=== PATIENT | male | born 1960 | race Caucasian/White ===

== ENCOUNTER 2019-03-22 15:38 | Inpatient (IN) | payer MEDICARE ==
[~2019-03-22] VITALS: Ht 182.9 cm; Wt 115.2 kg
[2019-03-22] MEDS ORDERED: BAYER CHEWABLE81 MG PO (15:56)
[2019-03-22] MEDS ORDERED: PLAVIX75 MG PO (15:56)
[2019-03-22] MEDS ORDERED: GABAPENTIN100 MG PO (15:57)
[2019-03-22] MEDS ORDERED: LANTUS INSULIN10 ML SC (15:59)
[2019-03-22] MEDS ORDERED: METOLAZONE5 MG PO (16:00)
[2019-03-22] MEDS ORDERED: LASIX40 MG PO (16:00)
[2019-03-22] MEDS ORDERED: PERCOCET 10-321 EAC1 PO (16:01)
[2019-03-22] MEDS ORDERED: SULFAMETHOXAZOL1 TA3 PO (16:02)
[2019-03-22 18:50] LABS: BASOPHILS 0.1 % (0-2); EOSINOPHILS 0.1 % (0-7); HEMATOCRIT 23.2 % (42.0-54.0); IMMATURE GRANULOCYTES 0.5 % (0-5); LYMPHOCYTES 5.8 % (15-50); MCH 26.6 pg (26.0-34.0); MCHC 31.9 g/dL (31.0-37.0); MCV 83.5 fL (80.0-100.0); MEAN PLATELET VOLUME 9.8 fL (7.4-10.4); MONOCYTES 3.9 % (2-11); NEUTROPHILS 89.6 % (40-80); PLATELET COUNT 259 10x3/uL (130-400); RBC 2.78 10x6/uL (4.20-6.10); WBC 16.6 10x3/uL (4.8-10.8)
[2019-03-22 18:53] LABS: HEMOGLOBIN 7.4 g/dL (13.5-17.5)
[2019-03-22 19:36] LABS: % SATURATION 36 % (15-55); IRON 59 ug/dl (35-150); TOTAL IRON BIND CAPACITY 160 ug/dl (260-445); UNSAT IRON BIND CAPACITY 101 ug/dl (150-375)
[2019-03-22 19:38] LABS: ALBUMIN 1.9 g/dL (3.4-5.0); ALKALINE PHOSPHATASE 159 U/L (46-116); ALT (SGPT) 153 U/L (10-68); BILIRUBIN - TOTAL 0.52 mg/dL (0.2-1.3); CHLORIDE - SERUM 92 mmol/L (98-107); CREATININE - SERUM 4.8 mg/dL (0.6-1.3); POTASSIUM - SERUM 4.7 mmol/L (3.5-5.1); PROTEIN - SERUM 7.3 g/dL (6.4-8.2); SODIUM 128 mmol/L (136-145); UREA NITROGEN 76 mg/dL (7-18); eGFR NON AFRICAN AMERICAN 13 mL/min (90-120)
[2019-03-22 19:39] LABS: CALC OSMOLALITY 298 mosm/kg (275-300); FERRITIN 3197 ng/mL (3-244)
[2019-03-22 19:43] LABS: GLUCOSE 435 mg/dL (74-106); KETONE - SERUM NEGATIVE (NEGATIVE)
[2019-03-22 20:00] VITALS: BP 125/51
[2019-03-22 20:19] VITALS: BP 122/50
[2019-03-23] VITALS: BP 93/46
[2019-03-23 04:00] VITALS: BP 114/46
[2019-03-23 07:44] VITALS: BP 109/47
[2019-03-23 10:44] LABS: ALBUMIN 1.8 g/dL (3.4-5.0); BILIRUBIN - TOTAL 0.48 mg/dL (0.2-1.3); CALCIUM 8.2 mg/dL (8.5-10.1); CARBON DIOXIDE 23.6 mmol/L (21.0-32.0); CREATININE - SERUM 4.5 mg/dL (0.6-1.3); POTASSIUM - SERUM 3.6 mmol/L (3.5-5.1); PROTEIN - SERUM 6.6 g/dL (6.4-8.2)
[2019-03-23 11:05] LABS: BASOPHILS 0.1 % (0-2); EOSINOPHILS 0.2 % (0-7); HEMATOCRIT 26.4 % (42.0-54.0); HEMOGLOBIN 8.7 g/dL (13.5-17.5); IMMATURE GRANULOCYTES 0.6 % (0-5); LYMPHOCYTES 7.8 % (15-50); MCH 27.1 pg (26.0-34.0); MCV 82.2 fL (80.0-100.0); MEAN PLATELET VOLUME 9.3 fL (7.4-10.4); MONOCYTES 6.8 % (2-11); NEUTROPHILS 84.5 % (40-80); PLATELET COUNT 220 10x3/uL (130-400); RBC 3.21 10x6/uL (4.20-6.10); WBC 12.9 10x3/uL (4.8-10.8)
[2019-03-23 11:49] VITALS: BP 112/49
[2019-03-23 13:56] VITALS: Ht 182.9 cm; Wt 115.2 kg
[2019-03-23 14:57] VITALS: BP 118/48
[2019-03-23 19:30] LABS: APPEARANCE CLEAR (CLEAR); COLOR YELLOW (YELLOW)
[2019-03-23 19:32] LABS: BILIRUBIN NEGATIVE (NEGATIVE); GLUCOSE NEGATIVE (NEGATIVE); KETONE NEGATIVE (NEGATIVE); NITRITE NEGATIVE (NEGATIVE); PROTEIN TRACE mg/dL (NEGATIVE); SPECIFIC GRAVITY 1.025 (1.005-1.020); UROBILINOGEN NORMAL (NORMAL)
[2019-03-23 19:33] LABS: BACTERIA FEW /hpf (NONE SEEN); RED CELLS - URINE 0-5 /hpf (0-5); WHITE CELLS - URINE 0-5 /hpf (0-5)
[2019-03-23 20:31] VITALS: BP 131/59
[2019-03-24] VITALS (7 sets, daily range): BP systolic 104–143; BP diastolic 46–68
[2019-03-24 06:20] LABS: BASOPHILS 0.1 % (0-2); EOSINOPHILS 0.3 % (0-7); HEMATOCRIT 27.2 % (42.0-54.0); IMMATURE GRANULOCYTES 0.8 % (0-5); LYMPHOCYTES 7.8 % (15-50); MCH 27.1 pg (26.0-34.0); MCHC 33.1 g/dL (31.0-37.0); MCV 81.9 fL (80.0-100.0); MEAN PLATELET VOLUME 9.5 fL (7.4-10.4); MONOCYTES 7.7 % (2-11); NEUTROPHILS 83.3 % (40-80); PLATELET COUNT 219 10x3/uL (130-400); RBC 3.32 10x6/uL (4.20-6.10); RDW 15.3 % (11.5-14.5)
[2019-03-24 07:09] LABS: ALBUMIN 1.8 g/dL (3.4-5.0); ANION GAP 16.3 mmol/L (8-16); BILIRUBIN - TOTAL 0.68 mg/dL (0.2-1.3); CALCIUM 8.2 mg/dL (8.5-10.1); CARBON DIOXIDE 21.5 mmol/L (21.0-32.0); CREATININE - SERUM 3.8 mg/dL (0.6-1.3); POTASSIUM - SERUM 3.8 mmol/L (3.5-5.1); PROTEIN - SERUM 6.7 g/dL (6.4-8.2); VANCOMYCIN - RANDOM 9.8 ug/mL (10.0-20.0)
--- NOTE | 2019-03-24 16:43 | MORECARE ---
CASE MANAGEMENT DISCHARGE SUMMARY PATIENT: JANELLE LIND UNIT: [id number] ADM DATE: 03/22/19 AGE: 58 : 56 SEX: M ROOM/BED: D.7965 AUTHOR: PERRY,DOC PHYSICIAN: REFERRING PHYSICIAN: YAO EMERY MD DATE OF SERVICE: 03/24/19 Discharge Plan Patient Name: JANELLE LIND Facility: [facility]:[place] : 1960 Planned Disposition: Home with Home Health Anticipated Discharge Date: Discharge Date: Expected LOS: Initial Reviewer: [id number] Initial Review Date: 03/24/2019 Generated: 03/24/19 5:43 pm Comments DCP- Discharge Planning Updated by [id number]: Valerio Mata on 03/23/19 3:[address] Patient Name: JANELLE LIND Admission Status: ER Accout number: [id number] Admission Date: 03-22-2019 : 1960 Admission Diagnosis: Attending: RADHA EMERY Current LOS: 1 Anticipated DC Date: Planned Disposition: Primary Insurance: UNINSURED DISCOUNT PLAN Discharge Planning Comments: CM ATTEMPTED TO MEET WITH PT FOR INITIAL ASSESSMENT OF DISCHARGE NEEDS. PT WAS NOT ABLE TO STAY AWAKE ENOUGH TO PARTICIPATE IN ASSESSMENT. CM TO ATTEMPT ASSESSMENT OF PT AT A LATER TIME. Advisor Advocate Angel Co Founder: Valerio Mata DCPIA - Discharge Planning Initial Assessment Updated by [id number]: Valerio Mata on 03/24/19 4:41 pm * Is the patient Alert and Oriented? Yes * How many steps to enter\exit or inside your home? NONE * PCP DR. ADITHYA JONES [place] * Pharmacy [facility] * Preadmission Environment Home with Family * ADLs Independent * Equipment Cane * Other Equipment NO MEDICAL EQUIPMENT PROVIDER PREFERENCE * List name and contact numbers for known caregivers / representatives who currently or will assist patient after discharge: YU LIND, SPOUSE, * Verbal permission to speak to the caregivers and representatives has been obtained from the patient. N/A * Community resources currently utilized Home Health * Please name any agencies selected above. [facility] * Additional services required to return to the preadmission environment? Yes * Can the patient safely return to the preadmission environment? Yes * Has this patient been hospitalized within the prior 30 days at any hospital? Yes Patient Name: JANELLE LIND Page 06961 at 1643 All edits/amendments must be made on the electronic document DICTATION DATE: 03/24/191642 INFANT CAREGIVER: ALFONZO 03/24/191642 RPT#: [id number] DC DATE: STATUS: ADM IN [facility] [address] [place] [address] END OF REPORT
--- NOTE | 2019-03-24 16:51 | MORECARE ---
CASE MANAGEMENT DISCHARGE SUMMARY PATIENT: JANELLE LIND UNIT: [id number] ADM DATE: 03/22/19 AGE: 58 : 56 SEX: M ROOM/BED: D.2130 AUTHOR: PERRY,DOC PHYSICIAN: REFERRING PHYSICIAN: YAO EMERY MD DATE OF SERVICE: 03/24/19 Discharge Plan Patient Name: JANELLE LIND Facility: [facility]:[place] : 1960 Planned Disposition: Home with Home Health Anticipated Discharge Date: Discharge Date: Expected LOS: Initial Reviewer: [email or web address] Initial Review Date: 03/24/2019 Generated: 03/24/19 5:51 pm Comments DCP- Discharge Planning Updated by [id number]: Valerio Mata on 03/24/19 3:[address] Patient Name: JANELLE LIND Encounter No: [id number] : 1960 Primary Insurance: UNINSURED DISCOUNT PLAN Anticipated DC Date: Planned Disposition: Home with Home Health External Planned Provider: [facility] DISCHARGE PLANNING NOTE: CM ATTEMPTED TO MEET WITH PT AT ABOUT 1605 HOURS, PT OUT OF ROOM. CM REVIEWED CHART AND LOCATED PT'S SPOUSE'S CONTACT INFORMATION, CALLED YU LIND AT [phone], TO DISCUSS DISCHARGE PLANNING AND NEEDS. YU REPORTS PT LIVING AT HOME INDEPENDENTLY WITH HER, HOME ADDRESS IS [address] [place] [address] IN [place], [place]. THEY HAVE NO STEPS TO GO UP OR DOWN TO GET INTO THE HOUSE OR IN THE HOUSE.. PT HAS A CANE WITH NO MEDICAL EQUIPMENT PROVIDER PREFERENCE. PT HAS HOME HEALTH FOR NURSING WITH [facility]. CM DISCUSSED AVAILABILITY OF HOME HEALTH, REHAB SERVICES AND MEDICAL EQUIPMENT. YU REPORTS THAT PT IS NOT GOING TO CONSENT TO ANY [facility] OR REHAB AND WILL INSIST ON COMING HOME. YU STATES THAT CM CAN DISCUSS THAT WITH PT BUT SHE DOUBTS THAT PT WILL GO ANYWHERE BUT HOME AT DISCHARGE. WHEN PT COMES HOME, THEY WILL WANT [facility] TO CONTINUE WITH ANY NEEDED HOME HEALTH SERVICES. CHOICE LETTER COMPLETED. CM GATHERED REGISTRATION INFORMATION AND FORWARDED TO [facility] WITH REGISTRATION. YU REPORTS NOT HAVING PT'S INSURANCE CARDS AND DOES NOT KNOW IF SHE WILL BE ABLE TO LOCATE THEM PT FILES HIS INFORMATION IN BOXES AT HOME WITH NO SYSTEM TO IT. FAMILY TO LAB [facility]ST FOR DISCHARGE HOME. PT PLANS TO DISCHARGE HOME WITH SPOUSE, [facility] TO [facility]. CM TO FOLLOW UP WITH PT TO DISCUSS DISCHARGE PLANS FURTHER. BALWINDER Cast DCP- Discharge Planning Updated by [id number]: Valerio Mata on 03/23/19 3:[address] Patient Name: JANELLE LIND Admission Status: ER Accout number: [id number] Admission Date: 03-22-2019 : 1960 Admission Diagnosis: Attending: RADHA EMERY Current LOS: 1 Anticipated DC Date: Planned Disposition: Primary Insurance: UNINSURED DISCOUNT PLAN Discharge Planning Comments: CM ATTEMPTED TO MEET WITH PT FOR INITIAL ASSESSMENT OF DISCHARGE NEEDS. PT WAS NOT ABLE TO STAY AWAKE ENOUGH TO PARTICIPATE IN ASSESSMENT. CM TO ATTEMPT ASSESSMENT OF PT AT A LATER TIME. Nut Cracker: Valerio Mata DCPIA - Discharge Planning Initial Assessment Updated by [email or web address]: Valerio Mata on 03/24/19 4:41 pm * Is the patient Alert and Oriented? Yes * How many steps to enter\exit or inside your home? NONE * PCP DR. ADITHYA JONES [place] * Pharmacy [facility] * Preadmission Environment Home with Family * ADLs Independent * Equipment Cane * Other Equipment NO MEDICAL EQUIPMENT PROVIDER PREFERENCE * List name and contact numbers for known caregivers / representatives who currently or will assist patient after discharge: YU LIND, SPOUSE, * Verbal permission to speak to the caregivers and representatives has been obtained from the patient. N/A * Community resources currently utilized Home Health * Please name any agencies selected above. [facility] * Additional services required to return to the preadmission environment? Yes * Can the patient safely return to the preadmission environment? Yes * Has this patient been hospitalized within the prior 30 days at any hospital? Yes Last DP export: 03/24/19 3:43 p Patient Name: JANELLE LIND Page 24993 at 1651 All edits/amendments must be made on the electronic document DICTATION DATE: 03/24/191649 GAS LINE INSTALLER: ALFONZO 03/24/191649 RPT#: [id number] DC DATE: STATUS: ADM IN [facility] [address] [place] [address] END OF REPORT
[2019-03-25] VITALS (12 sets, daily range): BP systolic 109–170; BP diastolic 49–86
[2019-03-25 05:50] LABS: BASOPHILS 0.1 % (0-2); EOSINOPHILS 0.7 % (0-7); HEMATOCRIT 26.9 % (42.0-54.0); HEMOGLOBIN 8.9 g/dL (13.5-17.5); LYMPHOCYTES 12.5 % (15-50); MCH 27.2 pg (26.0-34.0); MCHC 33.1 g/dL (31.0-37.0); MCV 82.3 fL (80.0-100.0); MEAN PLATELET VOLUME 9.2 fL (7.4-10.4); MONOCYTES 7.7 % (2-11); PLATELET COUNT 214 10x3/uL (130-400); RBC 3.27 10x6/uL (4.20-6.10); RDW 15.3 % (11.5-14.5); WBC 8.3 10x3/uL (4.8-10.8)
[2019-03-25 06:14] LABS: ALBUMIN 1.7 g/dL (3.4-5.0); ANION GAP 16.3 mmol/L (8-16); BILIRUBIN - TOTAL 0.83 mg/dL (0.2-1.3); CALCIUM 8.2 mg/dL (8.5-10.1); CARBON DIOXIDE 24.2 mmol/L (21.0-32.0); POTASSIUM - SERUM 3.5 mmol/L (3.5-5.1); PROTEIN - SERUM 6.7 g/dL (6.4-8.2); VANCOMYCIN - RANDOM 17.5 ug/mL (10.0-20.0)
[2019-03-25 06:38] LABS: CREATININE - SERUM 2.5 mg/dL (0.6-1.3)
--- NOTE | 2019-03-25 07:36 | OP ---
PATIENT NAME: JANELLE DOMINGUEZ MEDICAL RECORD: [id number] :56 LOCATION:D. D.2135 ADMISSION DATE:03/22/19 SURGEON: PROSPER MCFADDEN DO DATE OF OPERATION: 03/24/2019 PROCEDURE PERFORMED: A right below-knee amputation. PREOPERATIVE DIAGNOSIS: Right foot wet gangrene or right foot infection with open wound. POSTOPERATIVE DIAGNOSIS: Right foot wet gangrene or right foot infection with open wound. INDICATIONS: Mr. Dominguez is a 58-year-old male who was transferred from another hospital to the [place] with an open wound on the right foot medial aspect. He had already had a first metatarsal resection and had been treated by the wound clinic with a wound VAC on that. It was quite erythematous and swollen and had necrotic tissue up to the mid tibia and it was very malodorous. He had a high white count when he came in and several other medical problems. He also was diabetic. He had been dealing with this for quite some time. I informed that he needed an amputation and he was initially okay with it and then decided he did not want it and then his came and decided that he did want it. He has been somewhat confused during this stay here in the hospital. After informing him of the risks of bleeding, it would be , infection take over his body, the other risks of phantom pain, need for further surgery, higher amputation, he was okay with those risks and continued infection and signed the consent. SURGEON: Prosper Mcfadden DO DESCRIPTION OF PROCEDURE: The patient was given a block by anesthesia in the preoperative area and taken to the operative suite, laid in the supine position, given general anesthetic. He had been given vancomycin prior to this and was given in the OR. The right lower extremity was prepped and draped in sterile fashion and timeout was performed, everyone was in agreement with the correct side, site, patient and procedure. The open wound was covered with a stockinette. The incision was then marked out, had to be a high BK due to the infection being so high up on his tibia, went approximately 8 cm from the joint line distally and then made a flap posteriorly. The leg was then elevated and the tourniquet was inflated at 350 mmHg, was up for 38 minutes. The 10-blade was then used to cut through the skin and then a Bovie to dissect through the layers compartment and any vessels were encountered were tied and bovied. The posterior compartment flap was made and then the tibia and was cut and the fibula cut approximately a cm above it. The posterior tibial artery and nerve were tied off as well as the vein and then the traction neurectomy was done on the posterior tibial nerve. Once that was done, the tourniquet was let down. Any bleeders were coagulated at that time. The muscle was then debulked in order to get a good closure of the fascia. Two drill holes were then made into the tibia on the anterior surface and a FiberWire and #2 Ethibond were used to go through the distal flap posterior flap fascia and through the drill holes a Meek-Joel stitch was tied down to create a nice pad on the end of the stump. The fascia was then closed with #2-0 Ethibond and #1 Vicryl. The skin was then closed with 2-0 Vicryl in an inverted interrupted fashion and a 2-0 Prolene in horizontal mattress fashion on the skin. The wound was then covered in a Prevena incisional VAC and the patient was awakened and taken to recovery in OPERATIVE REPORT [id number] JANELLE DOMINGUEZ stable condition. Blood loss was approximately 200 mL. COMPLICATIONS: None. TRANSINT:[id number] Voice Confirmation ID: [id number] DOCUMENT ID: [id number] PROSPER MCFADDEN DO at 0736 CC: [id number] DICTATION DATE: 03/24/19 163 PEST TECHNICIAN: 03/25/19 0307 ADM IN [facility] [address] [place] [address]
[2019-03-26] VITALS (18 sets, daily range): BP systolic 117–162; BP diastolic 59–78
[2019-03-26 04:47] LABS: BASOPHILS 0 % (0-2); EOSINOPHILS 0.4 % (0-7); HEMATOCRIT 28.3 % (42.0-54.0); HEMOGLOBIN 9.2 g/dL (13.5-17.5); IMMATURE GRANULOCYTES 0.7 % (0-5); LYMPHOCYTES 14.8 % (15-50); MCH 27.5 pg (26.0-34.0); MCHC 32.5 g/dL (31.0-37.0); MCV 84.5 fL (80.0-100.0); MEAN PLATELET VOLUME 8.8 fL (7.4-10.4); MONOCYTES 10.5 % (2-11); NEUTROPHILS 73.6 % (40-80); PLATELET COUNT 206 10x3/uL (130-400); RBC 3.35 10x6/uL (4.20-6.10); RDW 15.5 % (11.5-14.5); WBC 8.5 10x3/uL (4.8-10.8)
[2019-03-26 05:03] LABS: ALBUMIN 1.7 g/dL (3.4-5.0); ANION GAP 13.3 mmol/L (8-16); BILIRUBIN - TOTAL 0.95 mg/dL (0.2-1.3); CALCIUM 8.3 mg/dL (8.5-10.1); CARBON DIOXIDE 27.3 mmol/L (21.0-32.0); POTASSIUM - SERUM 3.6 mmol/L (3.5-5.1); PROTEIN - SERUM 6.7 g/dL (6.4-8.2); VANCOMYCIN - RANDOM 8.2 ug/mL (10.0-20.0)
[2019-03-26 05:07] LABS: CREATININE - SERUM 1.4 mg/dL (0.6-1.3)
[2019-03-27] VITALS: BP 126/62
[2019-03-27 04:00] VITALS: BP 153/69
[2019-03-27 06:03] LABS: BASOPHILS 0.1 % (0-2); HEMATOCRIT 30.2 % (42.0-54.0); HEMOGLOBIN 9.6 g/dL (13.5-17.5); IMMATURE GRANULOCYTES 0.7 % (0-5); LYMPHOCYTES 18.7 % (15-50); MCH 27.3 pg (26.0-34.0); MCHC 31.8 g/dL (31.0-37.0); MCV 85.8 fL (80.0-100.0); MEAN PLATELET VOLUME 8.8 fL (7.4-10.4); MONOCYTES 8.5 % (2-11); PLATELET COUNT 225 10x3/uL (130-400); RBC 3.52 10x6/uL (4.20-6.10); RDW 15.2 % (11.5-14.5); WBC 7.1 10x3/uL (4.8-10.8)
[2019-03-27 06:56] LABS: ALBUMIN 1.7 g/dL (3.4-5.0); BILIRUBIN - TOTAL 0.79 mg/dL (0.2-1.3); CALCIUM 7.9 mg/dL (8.5-10.1); CARBON DIOXIDE 30.8 mmol/L (21.0-32.0); CREATININE - SERUM 1.2 mg/dL (0.6-1.3); POTASSIUM - SERUM 3.8 mmol/L (3.5-5.1); PROTEIN - SERUM 6.7 g/dL (6.4-8.2); VANCOMYCIN - RANDOM 12.5 ug/mL (10.0-20.0)
[2019-03-27 09:34] VITALS: BP 143/65
[2019-03-27 13:09] VITALS: BP 131/66
[2019-03-27 16:26] VITALS: BP 154/72
[2019-03-27 19:52] VITALS: BP 140/61
[2019-03-28] VITALS: BP 144/69
[2019-03-28 04:00] VITALS: BP 146/71
[2019-03-28 05:28] LABS: BASOPHILS 0.2 % (0-2); EOSINOPHILS 1.4 % (0-7); HEMATOCRIT 29.7 % (42.0-54.0); HEMOGLOBIN 9.3 g/dL (13.5-17.5); IMMATURE GRANULOCYTES 0.6 % (0-5); MCH 26.6 pg (26.0-34.0); MCHC 31.3 g/dL (31.0-37.0); MCV 85.1 fL (80.0-100.0); MEAN PLATELET VOLUME 8.7 fL (7.4-10.4); MONOCYTES 6.7 % (2-11); NEUTROPHILS 67.1 % (40-80); PLATELET COUNT 223 10x3/uL (130-400); RBC 3.49 10x6/uL (4.20-6.10); RDW 14.8 % (11.5-14.5); WBC 6.4 10x3/uL (4.8-10.8)
[2019-03-28 05:43] LABS: ALBUMIN 1.7 g/dL (3.4-5.0); BILIRUBIN - TOTAL 0.61 mg/dL (0.2-1.3); CARBON DIOXIDE 33.6 mmol/L (21.0-32.0); CREATININE - SERUM 1.1 mg/dL (0.6-1.3); POTASSIUM - SERUM 3.6 mmol/L (3.5-5.1); PROTEIN - SERUM 6.7 g/dL (6.4-8.2); VANCOMYCIN - RANDOM 16.1 ug/mL (10.0-20.0)
[2019-03-28 09:03] VITALS: BP 141/76
[2019-03-28 12:40] VITALS: BP 151/68
[2019-03-28 17:09] VITALS: BP 136/70
[2019-03-28 20:00] VITALS: BP 152/71
[2019-03-29] VITALS: BP 148/69
[2019-03-29 03:00] VITALS: BP 121/61
[2019-03-29 04:45] LABS: BASOPHILS 0.1 % (0-2); EOSINOPHILS 1.4 % (0-7); HEMATOCRIT 30.7 % (42.0-54.0); HEMOGLOBIN 10.1 g/dL (13.5-17.5); IMMATURE GRANULOCYTES 0.5 % (0-5); LYMPHOCYTES 22.4 % (15-50); MCH 27.6 pg (26.0-34.0); MCHC 32.9 g/dL (31.0-37.0); MCV 83.9 fL (80.0-100.0); MEAN PLATELET VOLUME 8.5 fL (7.4-10.4); MONOCYTES 7.2 % (2-11); NEUTROPHILS 68.4 % (40-80); PLATELET COUNT 250 10x3/uL (130-400); RBC 3.66 10x6/uL (4.20-6.10); RDW 14.5 % (11.5-14.5); WBC 7.4 10x3/uL (4.8-10.8)
[2019-03-29 05:03] LABS: ALBUMIN 1.9 g/dL (3.4-5.0); ANION GAP 6.9 mmol/L (8-16); BILIRUBIN - TOTAL 0.44 mg/dL (0.2-1.3); CALCIUM 8.2 mg/dL (8.5-10.1); CARBON DIOXIDE 34.9 mmol/L (21.0-32.0); CREATININE - SERUM 1.1 mg/dL (0.6-1.3); POTASSIUM - SERUM 3.8 mmol/L (3.5-5.1); PROTEIN - SERUM 6.8 g/dL (6.4-8.2); VANCOMYCIN - RANDOM 16.3 ug/mL (10.0-20.0)
[2019-03-29 07:56] VITALS: BP 119/62
[2019-03-29 12:37] VITALS: BP 112/51
--- NOTE | 2019-03-29 13:35 | MORECARE ---
CASE MANAGEMENT DISCHARGE SUMMARY PATIENT: JANELLE LIND UNIT: [id number] ADM DATE: 03/22/19 AGE: 58 : 56 SEX: M ROOM/BED: D.2226 AUTHOR: PERRY,DOC PHYSICIAN: REFERRING PHYSICIAN: YAO EMERY MD DATE OF SERVICE: 03/29/19 Discharge Plan Patient Name: JANELLE LIND Facility: [facility]:[place] : 1960 Planned Disposition: Home with Home Health Anticipated Discharge Date: Discharge Date: Expected LOS: Initial Reviewer: [id number] Initial Review Date: 03/24/2019 Generated: 03/29/19 2:35 pm Comments DCP- Discharge Planning Updated by [email or web address]: Stefany Efrain on 03/29/19 12:[address] Met with patient to discuss discharge planning/needs. I informed him that I had an order to refer him to a rehab near his home. He states that his plan is to return home with home health. States "my son in [place] states I can stay with him for awhile if I want to." He states that he has a wheelchair and a walker at home. Denies needs at this time. I have emailed Thais Mondragon to f/u on insurance since he is till showing uninsured. Patient states he has Medicare and Medicaid. CM will continue to follow and assist with discharge planning/needs. DCP- Discharge Planning Updated by [id number]: Valerio Mata on 03/24/19 3:[address] Patient Name: JANELLE LIND Encounter No: [id number] : 1960 Primary Insurance: UNINSURED DISCOUNT PLAN Anticipated DC Date: Planned Disposition: Home with Home Health External Planned Provider: [facility] DISCHARGE PLANNING NOTE: CM ATTEMPTED TO MEET WITH PT AT ABOUT 1605 HOURS, PT OUT OF ROOM. CM REVIEWED CHART AND LOCATED PT'S SPOUSE'S CONTACT INFORMATION, CALLED YU LIND AT [phone], TO DISCUSS DISCHARGE PLANNING AND NEEDS. YU REPORTS PT LIVING AT HOME INDEPENDENTLY WITH HER, HOME ADDRESS IS [address] IN [place], [place]. THEY HAVE NO STEPS TO GO UP OR DOWN TO GET INTO THE HOUSE OR IN THE HOUSE.. PT HAS A CANE WITH NO MEDICAL EQUIPMENT PROVIDER PREFERENCE. PT HAS HOME HEALTH FOR NURSING WITH [facility]. CM DISCUSSED AVAILABILITY OF HOME HEALTH, REHAB SERVICES AND MEDICAL EQUIPMENT. YU REPORTS THAT PT IS NOT GOING TO CONSENT TO ANY SKILLED NURSING OR REHAB AND WILL INSIST ON COMING HOME. YU STATES THAT CM CAN DISCUSS THAT WITH PT BUT SHE DOUBTS THAT PT WILL GO ANYWHERE BUT HOME AT DISCHARGE. WHEN PT COMES HOME, THEY WILL WANT [facility] TO CONTINUE WITH ANY NEEDED HOME HEALTH SERVICES. CHOICE LETTER COMPLETED. CM GATHERED REGISTRATION INFORMATION AND FORWARDED TO [facility] WITH REGISTRATION. YU REPORTS NOT HAVING PT'S INSURANCE CARDS AND DOES NOT KNOW IF SHE WILL BE ABLE TO LOCATE THEM PT FILES HIS INFORMATION IN BOXES AT HOME WITH NO SYSTEM TO IT. FAMILY TO RECRUITER MANAGER FOR DISCHARGE HOME. PT PLANS TO DISCHARGE HOME WITH SPOUSE, [facility] TO RESUME. CM TO FOLLOW UP WITH PT TO DISCUSS DISCHARGE PLANS FURTHER. BALWINEDR Cast MANGEMENT DCP- Discharge Planning Updated by [id number]: Valerio Mata on 03/23/19 3:[address] Patient Name: JANELLE LIND Admission Status: ER Accout number: [id number] Admission Date: 03-22-2019 : 1960 Admission Diagnosis: Attending: RADHA EMERY Current LOS: 1 Anticipated DC Date: Planned Disposition: Primary Insurance: UNINSURED DISCOUNT PLAN Discharge Planning Comments: CM ATTEMPTED TO MEET WITH PT FOR INITIAL ASSESSMENT OF DISCHARGE NEEDS. PT WAS NOT ABLE TO STAY AWAKE ENOUGH TO PARTICIPATE IN ASSESSMENT. CM TO ATTEMPT ASSESSMENT OF PT AT A LATER TIME. Machine Assembler For Puller Over: Valerio Mata DCPIA - Discharge Planning Initial Assessment Updated by [id number]: Valerio Mata on 03/24/19 4:41 pm * Is the patient Alert and Oriented? Yes * How many steps to enter\\exit or inside your home? NONE * [facility] [place] * Preadmission Environment Home with Family * ADLs Independent * Equipment Cane * Other Equipment NO MEDICAL EQUIPMENT PROVIDER PREFERENCE * List name and contact numbers for known caregivers / representatives who currently or will assist patient after discharge: YU LIND, SPOUSE, * Verbal permission to speak to the caregivers and representatives has been obtained from the patient. N/A * Community resources currently utilized Home Health * Please name any agencies selected above. [facility] * Additional services required to return to the preadmission environment? Yes * Can the patient safely return to the preadmission environment? Yes * Has this patient been hospitalized within the prior 30 days at any hospital? Yes Coverage Notice Reviewer: [id number] Isha Mata Notice Issued Date-Time: 03/24/2019 16:30 Notice Type: IM Discharge Notice Notice Delivered To: Family Member Relationship to Patient: Spouse Porter Sample Case Name: YU LIND Delivery Method: PHONE - Phone Geeta Days: Prior Verbal Notification: Recipient Understood Notice: Yes Recipient Signature: Med Rec Note Co-signed by Attending: Coverage Notice Comment: [facility] Last DP export: 03/24/19 3:51 p Patient Name: JANELLE LIND Page 67361 at 1335 All edits/amendments must be made on the electronic document DICTATION DATE: 03/29/19 1335 OUTER DIAMETER GRINDER: ALFONZO 03/29/19 1335 RPT#: [id number] DC DATE: STATUS: ADM IN [facility] [address] [place] [address] END OF REPORT
[2019-03-29 17:23] VITALS: BP 147/75
[2019-03-29 21:31] VITALS: BP 118/58
[2019-03-30 00:18] VITALS: BP 124/64
[2019-03-30 04:14] LABS: BASOPHILS 0.1 % (0-2); EOSINOPHILS 1.6 % (0-7); HEMATOCRIT 31.7 % (42.0-54.0); HEMOGLOBIN 10.3 g/dL (13.5-17.5); IMMATURE GRANULOCYTES 0.4 % (0-5); LYMPHOCYTES 26.6 % (15-50); MCH 26.9 pg (26.0-34.0); MCHC 32.5 g/dL (31.0-37.0); MCV 82.8 fL (80.0-100.0); MEAN PLATELET VOLUME 8.6 fL (7.4-10.4); MONOCYTES 7.6 % (2-11); NEUTROPHILS 63.7 % (40-80); RBC 3.83 10x6/uL (4.20-6.10); RDW 14.5 % (11.5-14.5)
[2019-03-30 04:18] LABS: PLATELET COUNT 308 10x3/uL (130-400)
[2019-03-30 04:33] LABS: ALBUMIN 2.1 g/dL (3.4-5.0); ANION GAP 9.7 mmol/L (8-16); BILIRUBIN - TOTAL 0.5 mg/dL (0.2-1.3); CALCIUM 8.3 mg/dL (8.5-10.1); CREATININE - SERUM 1.1 mg/dL (0.6-1.3); POTASSIUM - SERUM 3.7 mmol/L (3.5-5.1); PROTEIN - SERUM 7.5 g/dL (6.4-8.2); VANCOMYCIN - RANDOM 16.5 ug/mL (10.0-20.0)
[2019-03-30 05:03] VITALS: BP 144/62
[2019-03-30 08:38] VITALS: BP 158/84
--- NOTE | 2019-03-30 10:09 | MORECARE ---
CASE MANAGEMENT DISCHARGE SUMMARY PATIENT: JANELLE LIND UNIT: [id number] ADM DATE: 03/22/19 AGE: 58 : 56 SEX: M ROOM/BED: D.2226 AUTHOR: PERRY,DOC PHYSICIAN: REFERRING PHYSICIAN: YAO EMERY MD DATE OF SERVICE: 03/30/19 Discharge Plan Patient Name: JANELLE LIND Facility: [facility]:[place] : 1960 Planned Disposition: Home with Home Health Anticipated Discharge Date: Discharge Date: Expected LOS: Initial Reviewer: [id number] Initial Review Date: 03/24/2019 Generated: 03/30/19 11:09 am Comments DCP- Discharge Planning Updated by [email or web address]: Stefany Zuniga on 03/30/19 9:[address] Met again with the patient to discuss discharge planning. I informed him that looking at his PT and OT notes that they are suggesting rehab. I asked if he would like to go to a rehab closer to his home. He does not want to go to a skilled facility. He agreed to stay here at [facility] for rehab if accepted. CM will continue to follow and assist with discharge planning/needs. DCP- Discharge Planning Updated by [email or web address]: Stefany Zuniga on 03/29/19 12:[address] Met with patient to discuss discharge planning/needs. I informed him that I had an order to refer him to a rehab near his home. He states that his plan is to return home with home health. States "my son in [place] states I can stay with him for awhile if I want to." He states that he has a wheelchair and a walker at home. Denies needs at this time. I have emailed Thais Mondragon to f/u on insurance since he is till showing uninsured. Patient states he has Medicare and Medicaid. CM will continue to follow and assist with discharge planning/needs. DCP- Discharge Planning Updated by [id number]: Valerio Mata on 03/24/19 3:[address] Patient Name: JANELLE LIND Encounter No: [id number] : 1960 Primary Insurance: UNINSURED DISCOUNT PLAN Anticipated DC Date: Planned Disposition: Home with Home Health External Planned Provider: [facility] DISCHARGE PLANNING NOTE: CM ATTEMPTED TO MEET WITH PT AT ABOUT 1605 HOURS, PT OUT OF ROOM. CM REVIEWED CHART AND LOCATED PT'S SPOUSE'S CONTACT INFORMATION, CALLED YU LIND AT [phone], TO DISCUSS DISCHARGE PLANNING AND NEEDS. YU REPORTS PT LIVING AT HOME INDEPENDENTLY WITH HER, HOME ADDRESS IS [address] [place] [address] IN [place], [place]. THEY HAVE NO STEPS TO GO UP OR DOWN TO GET INTO THE HOUSE OR IN THE HOUSE.. PT HAS A CANE WITH NO MEDICAL EQUIPMENT PROVIDER PREFERENCE. PT HAS HOME HEALTH FOR NURSING WITH [facility]. CM DISCUSSED AVAILABILITY OF HOME HEALTH, REHAB SERVICES AND MEDICAL EQUIPMENT. YU REPORTS THAT PT IS NOT GOING TO CONSENT TO ANY SENIOR CARE OR REHAB AND WILL INSIST ON COMING HOME. YU STATES THAT CM CAN DISCUSS THAT WITH PT BUT SHE DOUBTS THAT PT WILL GO ANYWHERE BUT HOME AT DISCHARGE. WHEN PT COMES HOME, THEY WILL WANT [facility] TO CONTINUE WITH ANY NEEDED HOME HEALTH SERVICES. CHOICE LETTER COMPLETED. CM GATHERED REGISTRATION INFORMATION AND FORWARDED TO [facility] WITH REGISTRATION. YU REPORTS NOT HAVING PT'S INSURANCE CARDS AND DOES NOT KNOW IF SHE WILL BE ABLE TO LOCATE THEM PT FILES HIS INFORMATION IN BOXES AT HOME WITH NO SYSTEM TO IT. FAMILY TO PIE CUTTER FOR DISCHARGE HOME. PT PLANS TO DISCHARGE HOME WITH SPOUSE, [facility]. CM TO FOLLOW UP WITH PT TO DISCUSS DISCHARGE PLANS FURTHER. BALWINDER Cast DCP- Discharge Planning Updated by [id number]: Valerio Mata on 03/23/19 3:[address] Patient Name: JANELLE LIND Admission Status: ER Accout number: [id number] Admission Date: 03-22-2019 : 1960 Admission Diagnosis: Attending: RADHA EMERY Current LOS: 1 Anticipated DC Date: Planned Disposition: Primary Insurance: UNINSURED DISCOUNT PLAN Discharge Planning Comments: CM ATTEMPTED TO MEET WITH PT FOR INITIAL ASSESSMENT OF DISCHARGE NEEDS. PT WAS NOT ABLE TO STAY AWAKE ENOUGH TO PARTICIPATE IN ASSESSMENT. CM TO ATTEMPT ASSESSMENT OF PT AT A LATER TIME. Copyman: Valerio Mata DCPIA - Discharge Planning Initial Assessment Updated by [email or web address]: Valerio Mata on 03/24/19 4:41 pm * Is the patient Alert and Oriented? Yes * How many steps to enter\\exit or inside your home? NONE * PCP DR. ADITHYA JONES [place] * Pharmacy [facility] IN [place] * Preadmission Environment Home with Family * ADLs Independent * Equipment Cane * Other Equipment NO MEDICAL EQUIPMENT PROVIDER PREFERENCE * List name and contact numbers for known caregivers / representatives who currently or will assist patient after discharge: YU LIND, SPOUSE, * Verbal permission to speak to the caregivers and representatives has been obtained from the patient. N/A * Community resources currently utilized Home Health * Please name any agencies selected above. [facility] * Additional services required to return to the preadmission environment? Yes * Can the patient safely return to the preadmission environment? Yes * Has this patient been hospitalized within the prior 30 days at any hospital? Yes Coverage Notice Reviewer: [id number] Isha Mata Notice Issued Date-Time: 03/24/2019 16:30 Notice Type: IM Discharge Notice Notice Delivered To: Family Member Relationship to Patient: Spouse Chemical Milling Processor Name: YU LIND Delivery Method: PHONE - Phone Geeta Days: Prior Verbal Notification: Recipient Understood Notice: Yes Recipient Signature: Med Rec Note Co-signed by Attending: Coverage Notice Comment: [facility] Last DP export: 03/29/19 12:35 p Patient Name: JANELLE LIND Page 12452 at 1009 All edits/amendments must be made on the electronic document DICTATION DATE: 03/30/19 100 BUILDING SPECIALIST: ALFONZO 03/30/19 1008 RPT#: [id number] DC DATE: STATUS: ADM IN [facility] [address] [place] [address] END OF REPORT
[2019-03-30 11:59] LABS: APPEARANCE CLEAR (CLEAR); BACTERIA FEW /hpf (NONE SEEN); BILIRUBIN NEGATIVE (NEGATIVE); COLOR YELLOW (YELLOW); EPITHELIAL CELLS RARE /hpf (0-5); GLUCOSE 250 mg/dL (NEGATIVE); KETONE NEGATIVE (NEGATIVE); MUCUS <1+ /lpf (NONE SEEN); NITRITE NEGATIVE (NEGATIVE); PROTEIN 1+ mg/dL (NEGATIVE); SPECIFIC GRAVITY 1.015 (1.005-1.020); WHITE CELLS - URINE RARE /hpf (0-5)
[2019-03-30 13:07] VITALS: BP 161/85
[2019-03-30 16:40] VITALS: BP 173/82
[2019-03-30 20:00] VITALS: BP 174/85
[2019-03-31] VITALS: BP 162/76
[2019-03-31 04:30] VITALS: BP 151/69
[2019-03-31 07:57] LABS: BASOPHILS 0.1 % (0-2); EOSINOPHILS 0.9 % (0-7); HEMATOCRIT 34.4 % (42.0-54.0); HEMOGLOBIN 11.5 g/dL (13.5-17.5); IMMATURE GRANULOCYTES 0.3 % (0-5); LYMPHOCYTES 20.8 % (15-50); MCH 27.3 pg (26.0-34.0); MCHC 33.4 g/dL (31.0-37.0); MCV 81.7 fL (80.0-100.0); MEAN PLATELET VOLUME 8.6 fL (7.4-10.4); MONOCYTES 5.7 % (2-11); NEUTROPHILS 72.2 % (40-80); RBC 4.21 10x6/uL (4.20-6.10); RDW 14.5 % (11.5-14.5); WBC 7.7 10x3/uL (4.8-10.8)
[2019-03-31 08:01] LABS: PLATELET COUNT 398 10x3/uL (130-400)
[2019-03-31 08:18] LABS: ALKALINE PHOSPHATASE 160 U/L (46-116); ALT (SGPT) 30 U/L (10-68); BILIRUBIN - TOTAL 0.82 mg/dL (0.2-1.3); CALCIUM 8.8 mg/dL (8.5-10.1); CARBON DIOXIDE 26.7 mmol/L (21.0-32.0); CHLORIDE - SERUM 96 mmol/L (98-107); GLUCOSE 179 mg/dL (74-106); SODIUM 134 mmol/L (136-145); eGFR NON AFRICAN AMERICAN 81 mL/min (90-120)
[2019-03-31 08:20] LABS: ALBUMIN 2.7 g/dL (3.4-5.0); CALC OSMOLALITY 272 mosm/kg (275-300); UREA NITROGEN 14 mg/dL (7-18)
[2019-03-31 09:22] VITALS: BP 179/91
[2019-03-31] MEDS ORDERED: ZOSYN 2.25 GM2.25 G1 IV (10:51)
[2019-03-31] MEDS ORDERED: MIRALAX17 GM PO (10:52)
[2019-03-31] MEDS ORDERED: VANCOMYCIN 1 GM/1 G1 IV (11:25)
--- NOTE | 2019-03-31 12:09 | MORECARE ---
CASE MANAGEMENT DISCHARGE SUMMARY PATIENT: JANELLE LIND UNIT: [id number] ADM DATE: 03/22/19 AGE: 58 : 56 SEX: M ROOM/BED: D.2226 AUTHOR: PERRY,DOC PHYSICIAN: REFERRING PHYSICIAN: YAO EMERY MD DATE OF SERVICE: 03/31/19 Discharge Plan Patient Name: JANELLE LIND Facility: [facility]:[place] : 1960 Planned Disposition: Home with Home Health Anticipated Discharge Date: Discharge Date: Expected LOS: Initial Reviewer: [id number] Initial Review Date: 03/24/2019 Generated: 03/31/19 1:09 pm Comments DCP- Discharge Planning Updated by [email or web address]: Stefany Zuniga on 03/31/19 11:[address] Received order for discharge. I spoke with the patient, he is still in agreement to inpatient rehab. He awakened from sleep and seemed a little confused. His speech is hesitant. I called his , Yu, she states "he is always like that." She agrees with discharge to inpatient rehab. I spoke with his son per patient's request and informed of discharge to inpatient rehab today, he is in agreement. CM will continue to follow and assist with discharge planning/needs. Heath - [phone] DCP- Discharge Planning Updated by [id number]: Stefany Zuniga on 03/30/19 9:[address] Met again with the patient to discuss discharge planning. I informed him that looking at his PT and OT notes that they are suggesting rehab. I asked if he would like to go to a rehab closer to his home. He does not want to go to a skilled facility. He agreed to stay here at [facility] for rehab if accepted. CM will continue to follow and assist with discharge planning/needs. DCP- Discharge Planning Updated by [email or web address]: Stefany Zuniga on 03/29/19 12:[address] Met with patient to discuss discharge planning/needs. I informed him that I had an order to refer him to a rehab near his home. He states that his plan is to return home with home health. States "my son in [place] states I can stay with him for awhile if I want to." He states that he has a wheelchair and a walker at home. Denies needs at this time. I have emailed Thais Mondragon to f/u on insurance since he is till showing uninsured. Patient states he has Medicare and Medicaid. CM will continue to follow and assist with discharge planning/needs. DCP- Discharge Planning Updated by [id number]: Valerio Mata on 03/24/19 3:[address] Patient Name: JANELLE LIND Encounter No: [id number] : 1960 Primary Insurance: UNINSURED DISCOUNT PLAN Anticipated DC Date: Planned Disposition: Home with Home Health External Planned Provider: [facility] DISCHARGE PLANNING NOTE: CM ATTEMPTED TO MEET WITH PT AT ABOUT 1605 HOURS, PT OUT OF ROOM. CM REVIEWED CHART AND LOCATED PT'S SPOUSE'S CONTACT INFORMATION, CALLED YU LIND AT [phone], TO DISCUSS DISCHARGE PLANNING AND NEEDS. YU REPORTS PT LIVING AT HOME INDEPENDENTLY WITH HER, HOME ADDRESS [place] [address] [place] [address] IN [place], [place]. THEY HAVE NO STEPS TO GO UP OR DOWN TO GET INTO THE HOUSE OR IN THE HOUSE.. PT HAS A CANE WITH NO MEDICAL EQUIPMENT PROVIDER PREFERENCE. PT HAS HOME HEALTH FOR NURSING WITH [facility]. CM DISCUSSED AVAILABILITY OF HOME HEALTH, REHAB SERVICES AND MEDICAL EQUIPMENT. YU REPORTS THAT PT IS NOT GOING TO CONSENT TO ANY LONG TERM OR REHAB AND WILL INSIST ON COMING HOME. YU STATES THAT CM CAN DISCUSS THAT WITH PT BUT SHE DOUBTS THAT PT WILL GO ANYWHERE BUT HOME AT DISCHARGE. WHEN PT COMES HOME, THEY WILL WANT [facility] TO CONTINUE WITH ANY NEEDED HOME HEALTH SERVICES. CHOICE LETTER COMPLETED. CM GATHERED REGISTRATION INFORMATION AND FORWARDED TO [facility] WITH REGISTRATION. YU REPORTS NOT HAVING PT'S INSURANCE CARDS AND DOES NOT KNOW IF SHE WILL BE ABLE TO LOCATE THEM PT FILES HIS INFORMATION IN BOXES AT HOME WITH NO SYSTEM TO IT. FAMILY TO WIRELESS SALES EXPERT FOR DISCHARGE HOME. PT PLANS TO DISCHARGE HOME WITH SPOUSE, [facility] TO RESUME. CM TO FOLLOW UP WITH PT TO DISCUSS DISCHARGE PLANS FURTHER. Valerio Mata, CASE MANGEMENT DCP- Discharge Planning Updated by [email or web address]: Valerio Mata on 03/23/19 3:[address] Patient Name: JANELLE LIND Admission Status: ER Accout number: [id number] Admission Date: 03-22-2019 : 1960 Admission Diagnosis: Attending: RADHA EMERY Current LOS: 1 Anticipated DC Date: Planned Disposition: Primary Insurance: UNINSURED DISCOUNT PLAN Discharge Planning Comments: CM ATTEMPTED TO MEET WITH PT FOR INITIAL ASSESSMENT OF DISCHARGE NEEDS. PT WAS NOT ABLE TO STAY AWAKE ENOUGH TO PARTICIPATE IN ASSESSMENT. CM TO ATTEMPT ASSESSMENT OF PT AT A LATER TIME. Felt Finishing Supervisor: Valerio Mata DCPIA - Discharge Planning Initial Assessment Updated by [id number]: Valerio Mata on 03/24/19 4:41 pm * Is the patient Alert and Oriented? Yes * How many steps to enter\\exit or inside your home? NONE * PCP DR. ADITHYA JONES HENDERSON * Pharmacy [facility] IN [place] * Preadmission Environment Home with Family * ADLs Independent * Equipment Cane * Other Equipment NO MEDICAL EQUIPMENT PROVIDER PREFERENCE * List name and contact numbers for known caregivers / representatives who currently or will assist patient after discharge: YU LIND, SPOUSE, * Verbal permission to speak to the caregivers and representatives has been obtained from the patient. N/A * Community resources currently utilized Home Health * Please name any agencies selected above. [facility] * Additional services required to return to the preadmission environment? Yes * Can the patient safely return to the preadmission environment? Yes * Has this patient been hospitalized within the prior 30 days at any hospital? Yes Coverage Notice Reviewer: [email or web address] - Valerio Mata Notice Issued Date-Time: 03/24/2019 16:30 Notice Type: IM Discharge Notice Notice Delivered To: Family Member Relationship to Patient: Spouse Parking Supervisor Name: YU LIND Delivery Method: PHONE - Phone Geeta Days: Prior Verbal Notification: Recipient Understood Notice: Yes Recipient Signature: Med Rec Note Co-signed by Attending: Coverage Notice Comment: [facility] Reviewer: [id number] - Stefany Zuniga Notice Issued Date-Time: 03/31/2019 11:53 Notice Type: IM Discharge Notice Notice Delivered To: Patient Relationship to Patient: Self Parking Supervisor Name: Delivery Method: HAND - Hand Delivered Geeta Days: Prior Verbal Notification: Recipient Understood Notice: Yes Recipient Signature: Yes Med Rec Note Co-signed by Attending: Coverage Notice Comment: IMM delivered, signed, given, placed copy on chart. Last DP export: 03/30/19 9:09 a Patient Name: JANELLE LIND Page [phone] at 1209 All edits/amendments must be made on the electronic document DICTATION DATE: 03/31/191208 PLANNING INTERN: ALFONZO 03/31/191208 RPT#: [id number] DC DATE: STATUS: ADM IN [facility] [address] [place] [address] END OF REPORT
[2019-03-31 12:49] VITALS: BP 158/80
--- NOTE | 2019-04-01 07:05 | MORECARE ---
CASE MANAGEMENT DISCHARGE SUMMARY PATIENT: JANELLE LIND UNIT: [id number] ADM DATE: 03/22/19 AGE: 58 : 56 SEX: M ROOM/BED: D.2226 AUTHOR: PERRY,DOC PHYSICIAN: REFERRING PHYSICIAN: YAO EMERY MD DATE OF SERVICE: 04/01/19 Discharge Plan Patient Name: JANELLE LIND Facility: [facility]:[place] : 1960 Planned Disposition: Home with Home Health Anticipated Discharge Date: Discharge Date: 03/31/2019 Expected LOS: 0 Initial Reviewer: [email or web address] Initial Review Date: 03/24/2019 Generated: 04/01/19 8:05 am Comments DCP- Discharge Planning Updated by [email or web address]: Stefany Zuniga on 03/31/19 11:[address] Received order for discharge. I spoke with the patient, he is still in agreement to inpatient rehab. He awakened from sleep and seemed a little confused. His speech is hesitant. I called his , Yu, she states "he is always like that." She agrees with discharge to inpatient rehab. I spoke with his son per patient's request and informed of discharge to inpatient rehab today, he is in agreement. CM will continue to follow and assist with discharge planning/needs. Heath - [phone] DCP- Discharge Planning Updated by [email or web address]: Stefany Zuniga on 03/30/19 9:[address] Met again with the patient to discuss discharge planning. I informed him that looking at his PT and OT notes that they are suggesting rehab. I asked if he would like to go to a rehab closer to his home. He does not want to go to a skilled facility. He agreed to stay here at [facility] for rehab if accepted. CM will continue to follow and assist with discharge planning/needs. DCP- Discharge Planning Updated by [id number]: Stefany Zuniga on 03/29/19 12:[address] Met with patient to discuss discharge planning/needs. I informed him that I had an order to refer him to a rehab near his home. He states that his plan is to return home with home health. States "my son in [place] states I can stay with him for awhile if I want to." He states that he has a wheelchair and a walker at home. Denies needs at this time. I have emailed Thais Harriszier to f/u on insurance since he is till showing uninsured. Patient states he has Medicare and Medicaid. CM will continue to follow and assist with discharge planning/needs. DCP- Discharge Planning Updated by [id number]: Valerio Mata on 03/24/19 3:[address] Patient Name: JANELLE LIND Encounter No: [id number] : 1960 Primary Insurance: UNINSURED DISCOUNT PLAN Anticipated DC Date: Planned Disposition: Home with Home Health External Planned Provider: [facility] DISCHARGE PLANNING NOTE: CM ATTEMPTED TO MEET WITH PT AT ABOUT 1605 HOURS, PT OUT OF ROOM. CM REVIEWED CHART AND LOCATED PT'S SPOUSE'S CONTACT INFORMATION, CALLED YU LIND AT [phone], TO DISCUSS DISCHARGE PLANNING AND NEEDS. YU REPORTS PT LIVING AT HOME INDEPENDENTLY WITH HER, HOME ADDRESS IS [address] [place] [address] IN [place], [place]. THEY HAVE NO STEPS TO GO UP OR DOWN TO GET INTO THE HOUSE OR IN THE HOUSE.. PT HAS A CANE WITH NO MEDICAL EQUIPMENT PROVIDER PREFERENCE. PT HAS HOME HEALTH FOR NURSING WITH [facility]. CM DISCUSSED AVAILABILITY OF HOME HEALTH, REHAB SERVICES AND MEDICAL EQUIPMENT. YU REPORTS THAT PT IS NOT GOING TO CONSENT TO ANY PENITENTIARY OR REHAB AND WILL INSIST ON COMING HOME. YU STATES THAT CM CAN DISCUSS THAT WITH PT BUT SHE DOUBTS THAT PT WILL GO ANYWHERE BUT HOME AT DISCHARGE. WHEN PT COMES HOME, THEY WILL WANT [facility] TO CONTINUE WITH ANY NEEDED HOME HEALTH SERVICES. CHOICE LETTER COMPLETED. CM GATHERED REGISTRATION INFORMATION AND FORWARDED TO [facility] WITH REGISTRATION. YU REPORTS NOT HAVING PT'S INSURANCE CARDS AND DOES NOT KNOW IF SHE WILL BE ABLE TO LOCATE THEM PT FILES HIS INFORMATION IN BOXES AT HOME WITH NO SYSTEM TO IT. FAMILY TO VPK TEACHER FOR DISCHARGE HOME. PT PLANS TO DISCHARGE HOME WITH SPOUSE, [facility] TO RESUME. CM TO FOLLOW UP WITH PT TO DISCUSS DISCHARGE PLANS FURTHER. Valerio Mata, CASE MANGEMENT DCP- Discharge Planning Updated by [email or web address]: Valerio Mata on 03/23/19 3:[address] Patient Name: JANELLE LIND Admission Status: ER Accout number: [id number] Admission Date: 03-22-2019 : 1960 Admission Diagnosis: Attending: RADHA EMERY Current LOS: 1 Anticipated DC Date: Planned Disposition: Primary Insurance: UNINSURED DISCOUNT PLAN Discharge Planning Comments: CM ATTEMPTED TO MEET WITH PT FOR INITIAL ASSESSMENT OF DISCHARGE NEEDS. PT WAS NOT ABLE TO STAY AWAKE ENOUGH TO PARTICIPATE IN ASSESSMENT. CM TO ATTEMPT ASSESSMENT OF PT AT A LATER TIME. Batch Mixer Operator: Valerio Mata DCPIA - Discharge Planning Initial Assessment Updated by [email or web address]: Valerio Mata on 03/24/19 4:41 pm * Is the patient Alert and Oriented? Yes * How many steps to enter\\exit or inside your home? NONE * PCP DR. ADITHYA JONES MOBILE * Pharmacy [facility] IN [place] * Preadmission Environment Home with Family * ADLs Independent * Equipment Cane * Other Equipment NO MEDICAL EQUIPMENT PROVIDER PREFERENCE * List name and contact numbers for known caregivers / representatives who currently or will assist patient after discharge: YU LIND, SPOUSE, * Verbal permission to speak to the caregivers and representatives has been obtained from the patient. N/A * Community resources currently utilized Home Health * Please name any agencies selected above. [facility] * Additional services required to return to the preadmission environment? Yes * Can the patient safely return to the preadmission environment? Yes * Has this patient been hospitalized within the prior 30 days at any hospital? Yes Coverage Notice Reviewer: [email or web address] - Valerio Mata Notice Issued Date-Time: 03/24/2019 16:30 Notice Type: IM Discharge Notice Notice Delivered To: Family Member Relationship to Patient: Spouse Deckhand Maintenance Name: YU LIND Delivery Method: PHONE - Phone Geeta Days: Prior Verbal Notification: Recipient Understood Notice: Yes Recipient Signature: Med Rec Note Co-signed by Attending: Coverage Notice Comment: [facility] Reviewer: [id number] - Stefany Zuniga Notice Issued Date-Time: 03/31/2019 11:53 Notice Type: IM Discharge Notice Notice Delivered To: Patient Relationship to Patient: Self Deckhand Maintenance Name: Delivery Method: HAND - Hand Delivered Geeta Days: Prior Verbal Notification: Recipient Understood Notice: Yes Recipient Signature: Yes Med Rec Note Co-signed by Attending: Coverage Notice Comment: IMM delivered, signed, given, placed copy on chart. Last DP export: 03/31/19 11:09 a Patient Name: JANELLE LIND Page [phone] at 0705 All edits/amendments must be made on the electronic document DICTATION DATE: 04/01/19704 RETAIL RESET MERCHANDISER: ALFONZO 04/01/19704 RPT#: [id number] DC DATE:03/31/19 STATUS: DIS IN [facility] [address] [place] [address] END OF REPORT
== END 2019-03-31 16:12 | DRG 853 ==
LOC: D.ER 15:38 → D.M2 19:16 → D.MS 19:16 → D.ICU 19:16 → D.MS 03-26 15:19
PROVIDERS: Emergency Medicine; Family Medicine; Internal Medicine; Internal Medicine Nephrology; Orthopaedic Surgery; ADMIT Emergency Medicine; ATTEND Emergency Medicine
PROC: 0Y6H0Z1 Detachment at Right Lower Leg, High, Open Approach (ICD-10-PCS; principal; 2019-03-24 12:15)
DX: A41.9 Sepsis, unspecified organism (principal); N17.0 Acute kidney failure with tubular necrosis; E11.52 Type 2 diabetes mellitus with diabetic peripheral angiopathy with gangrene; I70.268 Atherosclerosis of native arteries of extremities with gangrene, other extremity; N17.9 Acute kidney failure, unspecified; N39.0 Urinary tract infection, site not specified; D62 Acute posthemorrhagic anemia; E11.65 Type 2 diabetes mellitus with hyperglycemia; E11.22 Type 2 diabetes mellitus with diabetic chronic kidney disease; I12.9 Hypertensive chronic kidney disease with stage 1 through stage 4 chronic kidney disease, or unspecified chronic kidney disease; N18.9 Chronic kidney disease, unspecified; D63.1 Anemia in chronic kidney disease; E78.5 Hyperlipidemia, unspecified; R74.8 Abnormal levels of other serum enzymes

== ENCOUNTER 2019-03-31 17:18 | Inpatient (IN) | payer MEDICARE ==
[~2019-03-31 17:18] MED LIST: BAYER CHEWABLE81 MG PO; GABAPENTIN100 MG PO; LANTUS INSULIN10 ML SC; LASIX40 MG PO; METOLAZONE5 MG PO; MIRALAX17 GM PO; PERCOCET 10-321 EAC1 PO; PLAVIX75 MG PO; SULFAMETHOXAZOL1 TA3 PO; VANCOMYCIN 1 GM/1 G1 IV; ZOSYN 2.25 GM2.25 G1 IV
--- NOTE | 2019-03-31 18:04 | NUR ---
ADMITTED TO ROOM 1110 FROM ACUTE UNIT. CL IN REACH.
--- NOTE | 2019-03-31 18:33 | NUR ---
WILL REPORT TO NEXT SHIFT ADULT ADMISSION ASSESSMENT, CARE PLANS, AND CONSENTS AND PAPER WORK NEEDS COMPLETED. ADULT HX. MEDS AND ORDERS ARE COMPLETED.
[2019-03-31 19:00] VITALS: BP 149/79
[2019-03-31 20:00] VITALS: BP 149/79
--- NOTE | 2019-03-31 22:40 | NUR ---
PATIENT RECEIVED SITTING UP IN BED WATCHING TV. VITAL SIGNS & ASSESSMENT DONE. NO C/O PAIN OR DISTRESS. BED LOW. CALL LIGHT WITHIN REACH. WILL CONTINUE TO MONITOR.
--- NOTE | 2019-04-01 01:45 | NUR ---
PATIENT EYES CLOSED. RESPIRATIONS 18 & EVEN. PATIENT HAS NO REACTION TO IV ANTIBIOTICS. BED LOW. CALL LIGHT WITHIN REACH. WILL CONTINUE TO MONITOR.
--- NOTE | 2019-04-01 02:15 | NUR ---
PT IN BED LOW POSITION, EYES CLOSED AROUSES EASILY TO VOICE, BREATHING EVEN AND UNLABORED, NO NEEDS NOTED, FLUIDS AND CALL LIGHT WITHIN REACH.
--- NOTE | 2019-04-01 02:35 | NUR ---
I AGREE WITH THIS FIRE EXTINGUISHER TECHNICIAN'S ASSESSMENT.
[2019-04-01 03:29] VITALS: BP 149/79; BMI 41.7
--- NOTE | 2019-04-01 04:18 | NUR ---
PATIENT AWAKE REQUESTING ORANGE JUICE. IV REMOVED FROM LEFT WRIST. NO ADVERSE REACTION TO IV ZOSYN AT THIS TIME. BED LOW. CALL LIGHT WITHIN REACH. WILL CONTINUE TO MONITOR.
[2019-04-01 08:21] VITALS: BP 112/67
[2019-04-01 08:27] LABS: BASOPHILS 0.2 % (0-2); EOSINOPHILS 1.7 % (0-7); HEMATOCRIT 32.6 % (42.0-54.0); HEMOGLOBIN 10.6 g/dL (13.5-17.5); IMMATURE GRANULOCYTES 0.2 % (0-5); MCH 27.3 pg (26.0-34.0); MCHC 32.5 g/dL (31.0-37.0); MEAN PLATELET VOLUME 8.7 fL (7.4-10.4); NEUTROPHILS 58.9 % (40-80); PLATELET COUNT 362 10x3/uL (130-400); RBC 3.88 10x6/uL (4.20-6.10); RDW 14.9 % (11.5-14.5); WBC 6.3 10x3/uL (4.8-10.8)
[2019-04-01 08:32] LABS: ANION GAP 12.4 mmol/L (8-16); CALCIUM 8.8 mg/dL (8.5-10.1); CARBON DIOXIDE 27.6 mmol/L (21.0-32.0)
[2019-04-01 08:41] LABS: CREATININE - SERUM 1.5 mg/dL (0.6-1.3)
--- NOTE | 2019-04-01 09:30 | NUR ---
PT DRESSINGS TO LLE CHANGED AT THIS TIME. WOUND NURSE TEX SERRANO, NOTIFED OF COCCYX SORE AND LLE SORES TO M[place]OCHO, ANKLE AND HEEL.
--- NOTE | 2019-04-01 10:15 | NUR ---
PT AM MEDS ADMINISTERED. PT DENIES NEEDS. WCTM.
[2019-04-01 12:08] VITALS: BMI 41.6
--- NOTE | 2019-04-01 13:46 | NUR ---
PATIENT ADMITTED TO REHAB FROM ACUTE FLOOR. PATIENT PCP IS DR. ADITHYA JONES IN [facility]. HOME HEALTH IS [facility]. DME AT HOME IS A WALKER AND WHEELCHAIR. DISCHARGE PLANS ARE FOR HIM TO RETURN HOME WITH FAMILY. WILL CONTINUE TO FOLLOW WITH PATIENT.
--- NOTE | 2019-04-01 15:36 | NUR ---
Admitted to Rehab on 03/31/19 with a stage 2 pressure injury on coccyx/sacrum measuring 8cm x 9cm. Left ankle chronic wound measuring 3cm x 2cm x 0.3cm Left heel has a 2cm x 2cm deep tissue injury and dorsal aspect of left foot has a scarred area. He is s/p right BKA with sutures intact. There is no drainage, redness or odor noted. Recommendations: Use calmoseptine cream on coccyx/sacrum and have pt turn/reposition himself every 2 hours while in bed. Pt demonstrated the ability to turn/reposition himself without assistance. [place] the wound on left ankle with betadine and cover it for protection. Cover left heel DTI with cushioned mepilex dressing. Float heel and/or keep pressure off the heel by turning/repositioning as instructed. For the BKA incision recommend covering with adaptic, 4x4s and wrapping with kerlix-securing with STORM. Wound care will monitor.
--- NOTE | 2019-04-01 18:44 | NUR ---
PT RESTING IN BED, DENIES NEEDS. WCTM.
[2019-04-01 19:00] VITALS: BP 123/41
--- NOTE | 2019-04-01 19:27 | NUR ---
PATIENT RECEIVED LAYING ON BED. ASSESSMENT & VITAL SIGNS DONE. NO C/O PAIN OR DISTRESS. BED LOW. CALL LIGHT WITHIN REACH. WILL CONTINUE TO MONITOR.
--- NOTE | 2019-04-02 00:30 | NUR ---
PATIENT AWAKE IV VANCOMYCIN MEDICATION STARTED. NO ADVERSE REACTION AT THIS TIME. PATIENT BED LOW. CALL LIGHT WITHIN REACH. WILL CONTINUE TO MONITOR.
--- NOTE | 2019-04-02 01:55 | NUR ---
RESTING IN BED WITH EYES CLOSED AND RESPIRATIONS UNLABORED. NO DISTRESS NOTED. CALL LIGHT IN REACH.
--- NOTE | 2019-04-02 04:26 | NUR ---
PATIENT EYES CLOSED. RESPIRATIONS 18 & EVEN. BED LOW. CALL LIGHT WITHIN REACH. WILL CONTINUE TO MONITOR.
[2019-04-02 08:00] VITALS: BP 129/64
--- NOTE | 2019-04-02 08:07 | NUR ---
PT IV RE-DRESSED. PT SITTING EATING BREAKFAST, DENIES NEEDS. WCTM.
[2019-04-02 08:58] LABS: BASOPHILS 0.2 % (0-2); EOSINOPHILS 1.8 % (0-7); HEMATOCRIT 30.6 % (42.0-54.0); HEMOGLOBIN 9.9 g/dL (13.5-17.5); IMMATURE GRANULOCYTES 0.2 % (0-5); LYMPHOCYTES 28.3 % (15-50); MCHC 32.4 g/dL (31.0-37.0); MCV 83.6 fL (80.0-100.0); MEAN PLATELET VOLUME 8.3 fL (7.4-10.4); NEUTROPHILS 58.5 % (40-80); RBC 3.66 10x6/uL (4.20-6.10); RDW 14.7 % (11.5-14.5); WBC 5.4 10x3/uL (4.8-10.8)
[2019-04-02 09:06] LABS: PLATELET COUNT 284 10x3/uL (130-400)
[2019-04-02 09:18] LABS: ANION GAP 12.2 mmol/L (8-16); CALCIUM 8.5 mg/dL (8.5-10.1); CARBON DIOXIDE 28.6 mmol/L (21.0-32.0); POTASSIUM - SERUM 3.8 mmol/L (3.5-5.1)
[2019-04-02 19:00] VITALS: BP 153/78
--- NOTE | 2019-04-02 19:33 | NUR ---
THE PATIENT WAS WATCHING TELEVISION WHEN STAFF ENTERED HIS ROOM. BED IS IN THE LO WPOSITION WITH SIDERAILS X2 AND CALL LIGHT WITHIN REACH. THE PATIENT DEMONSTRATES APPRORPIATE USE OF A CALL LIGHT. THE PATIENT APPEARS COMFORTABLE WITH NO QUESTIONS OR CONCERNS AT THIS TIME.
--- NOTE | 2019-04-03 07:22 | NUR ---
RESTING WO C/O PAIN. CL IN REACH. RESP EVEN AND UNLABORED.
[2019-04-03 08:21] VITALS: BP 158/81
--- NOTE | 2019-04-03 13:10 | NUR ---
IN BED. USED SLIDE BOARD TO TRANSFER FROM TO BED. MESSAGE LEFT FOR MAGGIE NICEMANAGER SURGERY FOR COCCYX.Elvin LUCERO FOOT.
--- NOTE | 2019-04-03 16:18 | NUR ---
NO CHANGE IN ASSESSMENT. RESP EVEN AND UNLABORED. CL IN REACH.
--- NOTE | 2019-04-03 19:35 | NUR ---
THE PATIENT WAS LYING IN BED AND TALKING TO FAMILY WHEN STAFF ENTERED HIS ROOM. BED IN THE LOW POSITION WITH SIDERAILS X2 AND CALL LIGHT IS WITHIN REACH. THE PATIENT WAS EDUCATED ON THE NEED TO CALL STAFF FOR ASSISTANCE WITH ANYTHING NEEDED AND PATIENT DEMONSTRATES UNDERSTANDING VIA TEACHBACK METHOD. THE PATIENT APPEARS COMFORTABLE WITH NO QUESTIONS OR CONCERNS AT THIS TIME.
[2019-04-03 20:46] VITALS: BP 166/78
--- NOTE | 2019-04-04 03:43 | NUR ---
PATIENT IS AWAKE AND TALKING TO STAFF. BED IS IN THE LOW POSITION WITH SIDERAILS X2 AND CALL LIGHT WITHIN REACH. THE PATIENT HAS NO QUESTIONS OR CONCERNS AT THIS TIME.
[2019-04-04 07:58] VITALS: BP 149/76
--- NOTE | 2019-04-04 08:03 | NUR ---
AWAKE, ALERT AND ORIENTED. NO C/O PAIN. RESP EVEN AND UNLABORED. CL IN REACH.
--- NOTE | 2019-04-04 10:27 | NUR ---
MIN ASSIST WITH TRANSFERS WITH SLIDE BOARD. PATIENT CAN DO 50-75 PERCENT OF EFFORT. USES URINAL TO VOID. STAFF EMPTIES IT.
--- NOTE | 2019-04-04 11:22 | NUR ---
NO C/O PAIN. RESP EVEN AND UNLABORED. CL IN REACH.
--- NOTE | 2019-04-04 16:03 | NUR ---
NO CHANGE IN ASSESSMENT. SITTING ON SIDE OF BED. CL IN REACH. NO DISTRESS NOTED.
--- NOTE | 2019-04-04 19:30 | NUR ---
PT UP ON SIDE OF BED, PLEASANT, TALKATIVE, PRN PAIN MED REQUESTED AND GIVEN, NO OTHER NEEDS NOTED, FLUIDS AND CALL LIGHT WITHIN REACH
[2019-04-05 00:48] VITALS: BP 157/94
--- NOTE | 2019-04-05 00:55 | NUR ---
PT IN BED LOWEST POSITION, EYES CLOSED, AROUSES EASILY TO VOICE, BREATHS EVEN/UNLABORED, NO NEEDS NOTED, FLUIDS AND CALL LIGHT WITHIN REACH
--- NOTE | 2019-04-05 05:33 | NUR ---
PT IN BED LOWEST POSITION, EYES CLOSED, AROUSES EASILY TO VOICE, BREATHS EVEN/UNLABORED, NO NEEDS NOTED, FLUIDS AND CALL LIGHT WITHIN REACH
[2019-04-05 06:57] LABS: BASOPHILS 0.2 % (0-2); EOSINOPHILS 1.7 % (0-7); HEMATOCRIT 28.9 % (42.0-54.0); HEMOGLOBIN 9.5 g/dL (13.5-17.5); IMMATURE GRANULOCYTES 0.2 % (0-5); LYMPHOCYTES 32.6 % (15-50); MCH 27.2 pg (26.0-34.0); MCHC 32.9 g/dL (31.0-37.0); MCV 82.8 fL (80.0-100.0); MEAN PLATELET VOLUME 8.5 fL (7.4-10.4); MONOCYTES 10.1 % (2-11); NEUTROPHILS 55.2 % (40-80); PLATELET COUNT 277 10x3/uL (130-400); RBC 3.49 10x6/uL (4.20-6.10); RDW 15.2 % (11.5-14.5); WBC 4.8 10x3/uL (4.8-10.8)
[2019-04-05 07:31] LABS: ANION GAP 13.5 mmol/L (8-16); CALCIUM 8.9 mg/dL (8.5-10.1); CARBON DIOXIDE 29.4 mmol/L (21.0-32.0); CREATININE - SERUM 1.7 mg/dL (0.6-1.3); POTASSIUM - SERUM 3.9 mmol/L (3.5-5.1)
[2019-04-05 08:00] VITALS: BP 165/82
--- NOTE | 2019-04-05 08:25 | NUR ---
THE PATIENT WAS SITTING IN BED WHEN STAFF ENTERED HIS ROOM. BED IS IN THE LOW POSITION WITH SIDERAILS X2 AND CALL LIGHT WITHIN REACH. THE PATIENT WAS EDUCATED ON AND DEMONSTRATES THE NEED TO CALL FOR ASSISTANCE WHEN GETTING OUT OF BED. THE PATIENT APPEARS COMFORTABLE WITH NO QUESTIONS OR CONCERNS AT THIS TIME.
[2019-04-05 19:00] VITALS: BP 163/83
--- NOTE | 2019-04-05 19:43 | NUR ---
AWAKE AND ALERT. RESTING IN BED. RESPIRATIONS UNLABORED. DRESSING TO RIGHT BKA INTACT. STATES HE HAS SOME PAIN BUT HE KNEW IT WASNT TIME FOR PAIN MEDICATION YET. SALINE LOCK INTACT TO LEFT FOREARM. NO DISTRESS NOTED.
--- NOTE | 2019-04-06 02:08 | NUR ---
RESTING IN BED WITH EYES CLOSED AND RESPIRATIONS UNLABORED. NO DISTRESS NOTED.
--- NOTE | 2019-04-06 05:11 | NUR ---
QUIET HOURS. RESTING IN BED WITH NO DISTRESS NOTED. NO ACUTE CHANGES IN CONDITION THIS SHIFT.
--- NOTE | 2019-04-06 07:49 | NUR ---
THE PATIENT APPEARED TO BE SLEEPING BUT AWOKE WHEN STAFF ENTERED HIS ROOM. BED IS IN THE LOW POSITION WITH SIDERAILS X2 AND CALL LIGHT WITHIN REACH. THE PATIENT DEMONSTRATES TH ENEED TO CALL STAFF FOR ANY ASSISTANCE NEEDED. THE PATIENT APPEARS COMFORTABLE AND HAS NO QUESTIONS OR CONCERNS AT THIS TIME.
[2019-04-06 08:00] VITALS: BP 134/71
--- NOTE | 2019-04-06 10:32 | NUR ---
Nutrition follow up: Diabetic diet with 100% intake of meals Pt reports BG is higher than normal and pt attributes this to diet Pt has no questions about diabetic diet at this time Pt is on appropriate diet RD Following
[2019-04-06 19:00] VITALS: BP 144/72
--- NOTE | 2019-04-06 20:20 | NUR ---
AWAKE AND ALERT. SITTING UP IN BED WATCHING TV. RESPIRATIONS UNLABORED. DRESSINGS INTACT TO RBKA AND LLE. NO ACUTE DISTRESS NOTED. CALL LIGHT IN REACH.
--- NOTE | 2019-04-07 02:22 | NUR ---
RESTING IN BED WITH EYES CLOSED AND RESPIRATIONS UNLABORED. NO DISTRESS NOTED. CALL LIGHT IN REACH.
--- NOTE | 2019-04-07 05:15 | NUR ---
QUIET HOURS. TOLERATED DRESSING CHANGES AND WOUND CARE EARLIER IN SHIFT WITH NO C/O DISCOMFORTS. NO ACUTE CHANGES IN CONDITION THIS SHIFT. NO DISTRESS NOTED.
[2019-04-07 06:42] LABS: ANION GAP 13.5 mmol/L (8-16); CALCIUM 8.8 mg/dL (8.5-10.1); CARBON DIOXIDE 29.7 mmol/L (21.0-32.0); CREATININE - SERUM 2.1 mg/dL (0.6-1.3); POTASSIUM - SERUM 4.2 mmol/L (3.5-5.1)
[2019-04-07 06:47] LABS: BASOPHILS 0.6 % (0-2); EOSINOPHILS 3.3 % (0-7); HEMATOCRIT 29.3 % (42.0-54.0); HEMOGLOBIN 9.7 g/dL (13.5-17.5); IMMATURE GRANULOCYTES 0.2 % (0-5); MCH 27.2 pg (26.0-34.0); MCHC 33.1 g/dL (31.0-37.0); MCV 82.3 fL (80.0-100.0); MEAN PLATELET VOLUME 8.8 fL (7.4-10.4); MONOCYTES 9.3 % (2-11); NEUTROPHILS 53.6 % (40-80); PLATELET COUNT 265 10x3/uL (130-400); RBC 3.56 10x6/uL (4.20-6.10); WBC 4.8 10x3/uL (4.8-10.8)
--- NOTE | 2019-04-07 07:35 | NUR ---
RECEIVED REPORT. SITTING UP ON SIDE OF BED ALERT AND ORIENTED X4. DENIES ANY NEEDS OR PAIN. NO SIGNS OF ACUTE DISTRESS NOTED. LEFT ARM SALINE LOCK NO SIGNS OF REDNESS, SWELLING OR INFILTRATION. FLUSHED 5 ML NS. CALL LIGHT WITHIN REACH, FALL PRECAUTIONS IN PLACE. WILL CONTINUE TO MONITOR
[2019-04-07 08:00] VITALS: BP 158/81
--- NOTE | 2019-04-07 13:44 | NUR ---
IN THERAPY GYM PARTICIPATING IN PT WITH
--- NOTE | 2019-04-07 16:33 | NUR ---
SITTING UP ON SIDE OF BED WATCHING TV. DENIES ANY NEEDS. NO SIGNS OF DISTRESS NOTED.
--- NOTE | 2019-04-07 16:36 | NUR ---
DR. MCFADDEN RETURNED CALL R/T SUTURE REMOVAL RIGHT BKA. DR. MCFADDEN ADVISED THAT HE WOULD COME DOWN SOMETIME NEXT WEEK AND REMOVE SUTURES AT THAT TIME IF HEALING WELL. DR. MCFADDEN WAS INFORMED OF EXPECTED D/C DATE 04/15/19.
--- NOTE | 2019-04-07 16:52 | NUR ---
DRESSED RIGHT BKA, APPLIED ADAPTIC, 4X4, WRAPPED WITH KERLIX AND STORM WRAP. SUTURES INTACT. NO REDNESS, EDEMA, DRAINAGE NOTED
[2019-04-07 19:00] VITALS: BP 153/80
--- NOTE | 2019-04-07 19:32 | NUR ---
AWAKE AND ALERT. RESTING IN BED WITH RESPIRAITONS UNLABORED. DRESSING INTACT TO RIGHT BKA AND LEFT ANKLE/FOOT. NO DISTRESS NOTED. CALL LIGHT IN REACH.
--- NOTE | 2019-04-08 03:09 | NUR ---
RESTING IN BED WITH EYES CLOSED AND RESPIRAITONS UNLABORED. NO DISTERSS NOTED. CALL LIGHT IN REACH.
--- NOTE | 2019-04-08 05:10 | NUR ---
QUIET HOURS. NO ACUTE CHANGES IN CONDITION THIS SHIFT. RESTING IN BED WITH NO DISTRESS NOTED. CALL LIGHT IN REACH.
--- NOTE | 2019-04-08 07:25 | NUR ---
RECEIVED REPORT. SITTING UP IN BED ALERT AND ORIENTED X4. DENIES ANY NEEDS OR PAIN. NO SIGNS OF DISTRESS NOTED. CALL LIGHT WITHIN REACH, FALL PRECAUTIONS IN PLACE. WILL CONTINUE TO MONITOR
[2019-04-08 08:00] VITALS: BP 146/81
--- NOTE | 2019-04-08 14:23 | NUR ---
IN THERAPY GYM PARTICIPATING IN OT.
--- NOTE | 2019-04-08 16:26 | NUR ---
SITTING UP ON SIDE OF BED WATCHING TV. DENIES ANY NEEDS OR PAIN. NO SIGNS OF DISTRESS NOTED. CALL LIGHT WITHIN REACH, FALL PRECAUTIONS IN PLACE. WILL CONTINUE TO MONITOR
--- NOTE | 2019-04-08 18:36 | NUR ---
I have reviewed this patient and I concur with the Shift Assessment completed by the Licensed Practical Nurse today this shift.
--- NOTE | 2019-04-08 19:23 | NUR ---
PT IS RESTING IN BED WITH EYES OPEN. ALERT AND ORIENTED X 3. DENIES ACUTE PAIN OR DISCOMFORT AT THIS TIME. DRESSINGS ARE CDI. NO DRAINAGE NOTED. LEFT FOREARM SALINE LOCK NOTED. SR'S ARE UP X 3 IN BED. CALL LIGHT AND BEDSIDE TABLE ARE WITHIN EASY REACH.
[2019-04-08 19:30] VITALS: BP 161/85
--- NOTE | 2019-04-08 21:48 | NUR ---
PT IS RESTING IN BED WITH EYES OPEN. ALL DRESSINGS CHANGED. PT VOICED COMPLIANT OF RIGHT STUMP PAIN LEVEL OF 8. MEDICATED PER JAN. PT VOIDED 700CC IN URINAL.
--- NOTE | 2019-04-09 00:01 | NUR ---
RESTING IN BED WITH EYES CLOSED.
--- NOTE | 2019-04-09 01:52 | NUR ---
PT IN BED LOWEST POSITION, EYES CLOSED AROUSES EASILY TO VOICE, BREATHS SLOW EVEN AND UNLABORED, NO NEEDS NOTED, FLUIDS AND CALL LIGHT WITHIN REACH,
--- NOTE | 2019-04-09 04:43 | NUR ---
PT IS RESTING IN BED WITH EYES CLOSED. NO DISTRESS NOTED.
--- NOTE | 2019-04-09 07:20 | NUR ---
RECEIVED REPORT. SITTING UP ON SIDE OF BED ALERT AND ORIENTED X4, PLEASANT AFFECT. DENIES ANY NEEDS OR PAIN. NO SIGNS OF DISTRESS NOTED. CALL LIGHT WITHIN REACH, FALL PRECAUTIONS IN PLACE. WILL CONTINUE TO MONITOR
[2019-04-09 08:09] VITALS: BP 158/84
--- NOTE | 2019-04-09 09:30 | NUR ---
CALLED PHARMACY AND SPOKE TO BILL IN REGARDS TO NEEDING LANTUS PEN AND CALMOSEPTIN FOR PATIENT
--- NOTE | 2019-04-09 11:31 | RHP ---
PATIENT: JANELLE DOMINGUEZ MEDICAL RECORD: [id number] ACCOUNT: [id number] LOCATION:[facility]1110 : 56 ADMISSION DATE: 03/31/19 REHABILITATION HISTORY AND PHYSICAL EXAMINATION POST ADMISSION PHYSICIAN EXAMINATION POST ADMISSION PHYSICAL EXAMINATION AND HISTORY AND PHYSICAL DATE OF ADMISSION: 03/31/2019 ADMITTING DIAGNOSES: Gangrene associated with diabetes, status post right rddka-eak-ecsu amputation. HISTORY OF PRESENT ILLNESS: The patient is a 58-year-old gentleman admitted to the acute rehab with right xcwip-slt-uxmh amputation. He is postop day #7. The patient was transferred from [place]. Patient of Dr. Cruz. He was sent secondary to severe gangrenous necrotic foot ulcer, right greater than left; acute renal failure and also elevated lactic acid and possible sepsis. Got a history of diabetes, hypertension, kidney disease, hyperlipidemia, and peripheral vascular disease. He complained of diabetic foot ulcers. Home health has been dealing with these and he had had a wound VAC in the past. The patient apparently has been somewhat confused during his stay. Comorbid conditions that are going to need to be ongoing and managed with acute physician oversight and also nursing will be ojtty-le-zqlndtq kidney disease, blood-loss anemia, sepsis, diabetes, hyperglycemia, anemia of chronic disease, elevated liver enzymes, and UTI. The patient also is also going to need DVT prophylaxis, medication management, skin care management, wound care, lab management for blood sugars, IV fluids, behavioral strategies that will need to be changed for his diabetes and blood pressure management, bowel and bladder management, in's and out's, and self-care deficits. These are all barriers to his discharge home at this time. Prior to this, Mr. Dominguez was independent with ADLs and moderately independent with ambulation using a rolling walker. Apparently him and his are actually getting this time and he will be going to live with his son. He is currently mod-to-max assist with ADLs and max to total assist with physical therapy to perform sit to stand and max for cues for proper hand management. He is confused. He demonstrates slow processing. Does not follow commands as well as he should. He will require intensive therapy and education from all disciplines in order to progress and hopefully discharge home with a family member. Comorbidities in this patient include septicemia, diabetes, anemia, chronic kidney disease, acute kidney injury, UTI, hyperlipidemia, peripheral vascular disease, diabetic foot ulcers, and elevated liver enzymes. PAST MEDICAL HISTORY: Significant for diabetes, hypertension, hyperlipidemia, neuropathy, chronic pain. PAST SURGICAL HISTORY: Includes a qhyoj-ork-ugkr amputation. ALLERGIES: No known drug allergies. CURRENT MEDICATIONS: He is on aspirin 81 mg daily, Plavix 75 mg daily, Neurontin 200 mg q.i.d. He has been on Lantus in the past. He is on polyethylene glycol 17 grams in 8 ounces of water daily, Percocet 10/325 as needed for pain. HABITS: No current alcohol or tobacco use. HISTORY AND PHYSICAL [id number] DIOGOJANELLE FAMILY HISTORY: Noncontributory. SOCIAL HISTORY: The patient hopes to return home down in the [facility] along with family members. REVIEW OF SYSTEMS: GENERAL: Does complain of weakness and fatigue. HEENT: Denies cold, cough, or congestion. CARDIOVASCULAR: Denies chest pain. PHYSICAL EXAMINATION: VITAL SIGNS: Stable, afebrile. GENERAL: A morbidly obese gentleman, in no acute distress upon exam. HEENT: Normocephalic and atraumatic. Mucosa moist. NECK: Supple with no lymphadenopathy. LUNGS: Clear at this time. HEART: Regular rate and rhythm. No murmurs, rubs, or gallops. ABDOMEN: Soft, obese, nontender, nondistended. Positive bowel sounds times 4. EXTREMITIES: Does have a noted nrtmc-yyu-mzyj amputation on the right. NEUROLOGIC: He is a little bit confused. He does have noted weakness. ASSESSMENT: This is a 58-year-old gentleman admitted to the rehab with a working diagnosis of right vqphe-xyh-kbxa amputation secondary to gangrene, complications of peripheral vascular disease and diabetes. The patient has potential to make improvement. We will institute the following multidisciplinary therapies including, but not limited to, physical, occupational, respiratory, speech, nutritional services, prosthetics, and orthotics. Given his complex medical condition and risks for medical complications, rehabilitation services cannot be provided at a lower level of care such as a skilled nurse facility. PLAN: 1. Admit to [facility] for the following modalities: A. Physical therapy to improve gait, all transfer skills, and bed mobility to modified independent level. B. Occupational therapy to modified independent level. C. Case management to assist with discharge planning and placement options. D. Nutrition to assist with nutritional needs. E. Rehabilitation nursing to assist in monitoring the patient's underlying medical conditions and to assist with any type of bowel or bladder management. 2. The patient's current medication and medical care will be continued. 3. The patient will be placed on standard fall precautions. 4. I am going to get him back on his Lantus. 5. We will be following him up again in the a.m. TRANSINT:[id number] Voice Confirmation ID: [id number] DOCUMENT ID: [id number] OLIVE notes whether there has been none or any medical/functional change since admission: - No change since preadmission screen. OLIVE attests patient continues to be appropriate for IRF: HISTORY AND PHYSICAL [id number] JANELLE DOMINGUEZues to be appropriate. YAO EMERY MD at 1131 CC: [id number] DICTATION DATE: 04/01/19815 MANAGER OF BROADCAST CONTENT: 04/01/19 1326 ADM IN [place] [id number] [place] [id number]
--- NOTE | 2019-04-09 12:00 | NUR ---
CALLED PHARMACY BACK A SECOND TIME IN REGARDS TO LANTUS PEN, BILL STATES THAT THEY WILL GET IT TO THE FLOOR SOON THEY CAN
--- NOTE | 2019-04-09 12:04 | NUR ---
SITTING UP ON SIDE OF BED WATCHING TV. DENIES ANY NEEDS OR PAIN. NO SIGNS OF DISTRESS NOTED. CALL LIGHT WITHIN REACH, FALL PRECAUTIONS IN PLACE.
--- NOTE | 2019-04-09 14:31 | NUR ---
LYING IN BED EYES CLOSED RESTING. NO SIGNS OF DISTRESS NOTED.
--- NOTE | 2019-04-09 17:33 | NUR ---
I have reviewed this patient and I concur with the Shift Assessment completed by the Licensed Practical Nurse today this shift.
--- NOTE | 2019-04-09 17:49 | NUR ---
SITTING UP ON SIDE OF BED EATING DINNER. DENIES ANY NEEDS OR PAIN. NO SIGNS OF DISTRESS NOTED.
[2019-04-09 19:00] VITALS: BP 162/86
--- NOTE | 2019-04-09 19:46 | NUR ---
PT SITTING ON THE SIDE OF HIS BED. ALERT AND ORIENTED X 3. HE VOICED COMPLAINT OF STUMP PAIN LEVEL OF 8. MEDICATED PER MAR. DRESSINGS ARE CDI. PT REQUESTED HIS HS SNACK EARLY BECAUSE HE WAS "VERY HUNGRY." FSBS 175. SNACK GIVEN TO PT. SR'S ARE UP X 2 IN BED. CALL LIGHT AND BEDSIDE TABLE ARE WITHIN EASY REACH.
--- NOTE | 2019-04-09 22:17 | NUR ---
RESTING IN BED WITH EYES CLOSED.
--- NOTE | 2019-04-10 02:35 | NUR ---
I have reviewed this patient and I concur with the Shift Assessment completed by the Licensed Practical Nurse today this shift.
--- NOTE | 2019-04-10 07:28 | NUR ---
RESTING WO DISTRESS. RESP EVEN AND UNLABORED. CL IN REACH.
[2019-04-10 08:00] VITALS: BP 176/94
--- NOTE | 2019-04-10 12:16 | NUR ---
PARTICIPATED IN THERAPY THIS AM. BACK TO ROOM. CL IN REACH.
--- NOTE | 2019-04-10 12:31 | NUR ---
PATIENT IS SBA BED TO WC AND WC TO BED. WAS MAX ASSIST WC TO TOILET AND TOILET TO WC.
--- NOTE | 2019-04-10 15:33 | NUR ---
NO CHANGE IN ASSESSMENT. NO DISTRESS NOTED. CL IN REACH.
[2019-04-10 21:45] VITALS: BP 159/88
--- NOTE | 2019-04-10 22:06 | NUR ---
1930 PATIENT SITTING UP IN BED. DRESSING TO RIGHT STUMP CHANGED. INCISION APPEARS CLEAN AND DRY. NO DRAINAGE NOTED. 2100: 2100 MEDICATIONS GIVEN. PATIENT ALSO REQUESTED A PAIN PILL FOR STUMP PAIN. ASSISTED PATIENT ON BEDPAN PER REQUEST. HAD MEDIUM BM. DRESSING TO STUMP FELL OFF AND HAD TO REDRESS. NO COMPLAINTS AT THIS TIME. WILL CONTINUE TO MONITOR.
--- NOTE | 2019-04-11 00:26 | NUR ---
PATIENT SLEEPING AT THIS TIME. WILL CONTINUE TO MONITOR.
--- NOTE | 2019-04-11 06:30 | NUR ---
PATIENT HAD INCONTIENT EPISODE. COMPLETE BED CHANGE NECESSARY.
--- NOTE | 2019-04-11 07:37 | NUR ---
THE PATIENT APPEARED TO BE SLEEPING BUT EASILY AWOKE WHEN STAFF ENTERED HIS ROOM. BED IS IN THE LOW POSITION WITH SIDERAILS X2 AND CALL LIGHT WITHIN REACH. THE PATIENT DEMONSTRATES APPRORPIATE USE OF A CALL LIGHT. THE PATIENT APPEARS COMFORTABLE WITH NO QUESTIONS OR CONCERNS AT THIS TIME.
[2019-04-11 08:00] VITALS: BP 140/59
[2019-04-11 21:42] VITALS: BP 173/92
--- NOTE | 2019-04-11 22:14 | NUR ---
1900 PATIENT SITTING UP IN BED, ALERT AND ORIENTED X3. NO COMPLAINTS AT THIS TIME. 2000 BED BATH GIVEN PER SELF. NURSE ONLY NEEDED TO WASH BACK. SRESSINGS TO RIGHT STUMP AND LEFT ANKLE CHANGED. RIGHT STUMP LOOKS CLEAN AND EDGES ARE APPROXIMATED WITH NO DRAINAGE NOTED. LEFT ANKLE WOUNDS APPEAR TO BE HEALING AND NO DRAINAGE NOTED. REQUESTED PAIN MEDICATION FOR RIGHT STUMP PAIN. BS 211 AND 8 U INUSLIN WAS GIVEN. PATIENT SLEEPING AT THIS TIME. WILL CONTINUE TO MONITOR. CALL LIGHT WITHIN REACH.
[2019-04-12 06:42] LABS: BASOPHILS 0.4 % (0-2); EOSINOPHILS 3.2 % (0-7); HEMATOCRIT 31.1 % (42.0-54.0); HEMOGLOBIN 10.3 g/dL (13.5-17.5); IMMATURE GRANULOCYTES 0.2 % (0-5); LYMPHOCYTES 32.5 % (15-50); MCH 27.3 pg (26.0-34.0); MCHC 33.1 g/dL (31.0-37.0); MCV 82.5 fL (80.0-100.0); MEAN PLATELET VOLUME 8.6 fL (7.4-10.4); MONOCYTES 7.4 % (2-11); NEUTROPHILS 56.3 % (40-80); RBC 3.77 10x6/uL (4.20-6.10); RDW 15.3 % (11.5-14.5); WBC 5.3 10x3/uL (4.8-10.8)
[2019-04-12 06:47] LABS: PLATELET COUNT 172 10x3/uL (130-400)
[2019-04-12 06:57] LABS: CALCIUM 9.1 mg/dL (8.5-10.1); CARBON DIOXIDE 29.1 mmol/L (21.0-32.0); CREATININE - SERUM 1.8 mg/dL (0.6-1.3); POTASSIUM - SERUM 4.1 mmol/L (3.5-5.1)
[2019-04-12 08:00] VITALS: BP 135/77
--- NOTE | 2019-04-12 08:18 | NUR ---
THE PATIENT WAS SITTING ON THE EDGE OF HIS BED WHEN STAFF ENTERED HIS ROOM. BED IS IN THE LOW POSITION WITH SIDERAILS X2 AND CALL LIGHT WITHIN REACH. PATIENT DEMONSTRATES APPRORPIATE USE OF A CALL LIGHT. THE PATIENT APPEARS COMFORTABLE WITH NO QUESTIONS OR CONCERNS AT THIS TIEM.
[2019-04-12 19:00] VITALS: BP 129/66
--- NOTE | 2019-04-12 20:00 | NUR ---
PATIENT RECEIVED SITTING UP IN BED WATCHING TV. PATIENT ASSESSMENT & VITAL SIGNS DONE. PATIENT HAD NO C/O PAIN OR DISTRESS. BED LOW. ALARM ON. CALL LIGHT WITHIN REACH. WILL CONTINUE TO MONITOR.
--- NOTE | 2019-04-12 23:52 | NUR ---
PT IN BED, LOWEST POSITION, EYES CLOSED, AROUSES EASILY TO VOICE, NO IMMEDIATE NEEDS NOTED, FLUIDS AND CALL LIGHT WITHIN REACH
--- NOTE | 2019-04-13 02:35 | NUR ---
PATIENT EYES CLOSED. RESPIRATIONS 18 & EVEN. BED LOW. CALL LIGHT WITHIN REACH. WILL CONTINUE TO MONITOR.
[2019-04-13 08:00] VITALS: BP 149/83
--- NOTE | 2019-04-13 08:15 | NUR ---
PT UP ON SIDE OF BED EATING BREAKFAST TOLERATING WELL WILL MONITER
--- NOTE | 2019-04-13 09:31 | NUR ---
SITTING ON SIDE OF BED. NO C/O PAIN. CL IN REACH.
--- NOTE | 2019-04-13 09:48 | NUR ---
Nutrition follow up Diabetic diet with 75-100% intake of meals based on available documentation Pt reports good appetite and no questions about nutrition RD following
--- NOTE | 2019-04-13 13:21 | NUR ---
I have reviewed this patient and I concur with the Shift Assessment completed by the Licensed Practical Nurse today this shift.
--- NOTE | 2019-04-13 18:00 | NUR ---
PT RESTING ON SIDE OF BED EATING SUPPER TOLERATING WELL WILL MONITER
--- NOTE | 2019-04-13 19:11 | NUR ---
VITAL SIGNS DONE, RESULT SEE FLOW SHEET.
--- NOTE | 2019-04-13 21:56 | NUR ---
DRESSING CHANGE DONE.
[2019-04-14 00:41] VITALS: BP 165/81
--- NOTE | 2019-04-14 03:56 | NUR ---
REST IN BED. EYE CLOSE, CALL LIGHT IN REACH.
--- NOTE | 2019-04-14 05:16 | NUR ---
CHECKED PT FSBS, 98. [place] [employer] GIVEN.
[2019-04-14 08:10] VITALS: BP 145/77
--- NOTE | 2019-04-14 08:25 | NUR ---
THE PATIENT WAS SITTING ON THE SIDE OF HIS BED WHEN STAFF ENTERED HIS ROOM. BED IS IN THE LOW POSITION WITH SIDERAILS X2 AND CALL LIGHT WITHIN REACH. THE PATIENT DEMONSTRATED TH ENEED TO CALL FOR STAFF WHENEVER HE NEEDS TO GET OUT OF BED. THE PATIENT APPEARS COMFORTABLE WITH NO QUESTIONS OR CONCERNS AT THIS TIME.
--- NOTE | 2019-04-14 15:15 | NUR ---
CARE TEAM MEETING: PATIENT PROGRESSING VERY WELL IN THERAPY TENATIVE DISCHARGE DATE IS 04/16/19. WILL CONTINUE TO FOLLOW WITH PATIENT. PATIENT WAS REQUESTING A HOSPITAL BED BUT DOES NOT MEET REQUIREMENTS
[2019-04-14 19:00] VITALS: BP 161/88
--- NOTE | 2019-04-14 19:35 | NUR ---
ROUNDS MADE, FRANCY HOPSON IN ROOM TAKING PT TO BR
--- NOTE | 2019-04-14 20:18 | NUR ---
ASSESSMENT PER FLOW SHEET, PT REPORTS FLATUS, BM TODAY, AND VOIDING WITH NO DIFFICULTY, PT STATES "ARE YOU GOING TO CHANGE THESE DRESSINGS TONIGHT", INFORMED PT THAT I WILL, PT DENIES NEEDS AT THIS TIME
--- NOTE | 2019-04-14 21:05 | NUR ---
PT AWAKE, OBTAINED FSBS, INFORMED PT THAT I WILL BE BACK SHORTLY TO ADM MEDS, PT REQUESTS PAIN MED AT THAT TIME
--- NOTE | 2019-04-14 21:32 | NUR ---
ADM 2100 MEDS AND PAIN MED PER MD ORDERS, SEE EMAR, DRESSING CHANGES DONE PER MD ORDERS, PT [place] WELL, PT PROVIDED SNACK, DENIES FURTHER NEEDS, BED IN LOW POSITION, SIDE RAILS X 2, CALL LIGHT IN REACH
--- NOTE | 2019-04-14 23:30 | NUR ---
PT RESTING WITH EYES CLOSED, RESP QUIET, NO DISTRESS NOTED, LEFT UNDISTURBED AT THIS TIME, BED IN LOW POSITION, SIDE RAILS X 2, CALL LIGHT IN REACH
--- NOTE | 2019-04-15 06:04 | NUR ---
PT AWAKE, OBTAINED FSBS, EMPTIED URINAL, PT DENIES NEEDS AT THIS TIME, BED IN LOW POSITION, SIDE RAILS X 2, CALL LIGHT IN REACH
--- NOTE | 2019-04-15 07:57 | NUR ---
THE PATIENT WAS SITTING ON THE EDGE OF HIS BED WHEN STAFF ENTERED HIS ROOM. BED IS IN THE LOW POSITION WITH SIDERAILS X2 AND CALL LIGHT WITHIN REACH. THE PATIENT WAS EDUCATED ON THE NEED TO CALL FOR STAFF ASSISTANCE WITH ANY ADLS THAT REQUIRE THE PATIENT TO GET OUT OF BED. THE PATIENT DEMONSTRATES UNDERSTANDING VIA TEACHBACK METHOD. THE PATIENT APPEARS COMFORTABLE WITH NO QUESTIONS OR CONCERNS AT THIS TIME.
[2019-04-15 08:00] VITALS: BP 148/83
[2019-04-15 19:15] VITALS: BP 191/75; BP 195/98
--- NOTE | 2019-04-15 19:25 | NUR ---
AWAKE AND ALERT. RESTING IN BED. RESPIRATIONS UNLABORED. RIGHT BKA SITE OPEN TO AIR AND INCISION EDGES ARE APPROXIMATED WITH NOTED MILD SCABBING. STATES HIS INNER LEFT THIGH IS SORE LIKE "HE PULLED IT". HEATED BLANKED APPLIED TO AREA. NO ACUTE DISTRESS NOTED. CALL LIGHT IN REACH.
--- NOTE | 2019-04-16 02:34 | NUR ---
RESTING IN BED WITH EYES CLOSED AND RESPIRATIONS UNLABORED. NO DISTRESS NOTED. CALL LIGHT IN REACH.
[2019-04-16 07:55] VITALS: BP 138/61
--- NOTE | 2019-04-16 08:00 | NUR ---
PT SITTING UP IN WHEELCHAIR EATING BREAKFAST, DENIES NEEDS. WCTM.
[2019-04-16 08:02] VITALS: BP 122/68
[2019-04-16] MEDS ORDERED: WELLBUTRIN SR150 MG PO (08:22)
[2019-04-16] MEDS ORDERED: PERCOCET 10-321 EAC1 PO (08:22)
[2019-04-16] MEDS ORDERED: LANTUS INSULIN10 ML SC (08:22)
--- NOTE | 2019-04-16 09:25 | NUR ---
PATIENT DISCHARGING HOME TODAY WITH FAMILY. [facility] WILL PROVIDE THERAPY AT HOME. NO NEW DME NEEDED AT THIS TIME. DR. CONNIE JONES 04/22/19 @ 3:20, DR. MCFADDEN 04/29/19 @ 10:30. PATIENT CHOICE FORM AND [facility] FORMS SIGNED, COPY GIVEN TO PATIENT AND FILED IN CHART. DISCHARGE INSTRUCTIONS FAXED TO PCP, HOME HEALTH AND REVIEWED WITH PATIENT.
--- NOTE | 2019-04-16 10:00 | NUR ---
PT AM MEDS ADMINISTERED. PT DENIES NEEDS. WCTM.
--- NOTE | 2019-04-16 12:45 | NUR ---
PT DISCHARGE INSTRUCTIONS REVIEWED AND PT STATES UNDERSTANDING. PT TRANSPORTED OUT BY HOSPITAL STAFF VIA WHEELCHAIR. PT ASSISTED INTO VEHICLE BY THIS NURSE. PT BEING TAKEN HOME BY SON. PT MEDICATIONS CALLED IN TO [facility] IN [place].
== END 2019-04-16 13:39 | disposition home health service (06) | DRG 559 ==
LOC: D.REHAB 17:18
PROVIDERS: ADMIT Emergency Medicine; ATTEND Emergency Medicine
DX: Z47.81 Encounter for orthopedic aftercare following surgical amputation (principal); A41.9 Sepsis, unspecified organism; E11.52 Type 2 diabetes mellitus with diabetic peripheral angiopathy with gangrene; N17.9 Acute kidney failure, unspecified; N39.0 Urinary tract infection, site not specified; J90 Pleural effusion, not elsewhere classified; Z89.511 Acquired absence of right leg below knee; I12.9 Hypertensive chronic kidney disease with stage 1 through stage 4 chronic kidney disease, or unspecified chronic kidney disease; E11.22 Type 2 diabetes mellitus with diabetic chronic kidney disease; N18.9 Chronic kidney disease, unspecified; E78.5 Hyperlipidemia, unspecified; I73.9 Peripheral vascular disease, unspecified; R94.5 Abnormal results of liver function studies; D64.9 Anemia, unspecified; E11.621 Type 2 diabetes mellitus with foot ulcer